=== PATIENT | female | born 1980 | race Caucasian/White ===

== ENCOUNTER 2017-08-29 18:13 | Emergency (ER) | payer MEDICARE, MEDICAID ==
--- NOTE | 2017-08-29 18:49 | RAD ---
3 VIEWS LEFT SHOULDER: Date: 08/29/17 INDICATION: Fall with left shoulder pain. IMPRESSION: No acute fracture or subluxation is evident. Visualized left lung is clear. POS: [facility]
== END 2017-08-29 19:20 | disposition home or self-care (01) ==
LOC: ERS 18:13
DX: S46.912A Strain of unspecified muscle, fascia and tendon at shoulder and upper arm level, left arm, initial encounter (principal); F41.9 Anxiety disorder, unspecified; W01.0XXA Fall on same level from slipping, tripping and stumbling without subsequent striking against object, initial encounter

== ENCOUNTER 2018-04-04 20:40 | Inpatient (IN) | payer MEDICARE, MEDICAID ==
[2018-04-04] MEDS ORDERED: Pantoprazole 40 MG VIAL ONE (22:09)
[2018-04-04] MEDS ORDERED: Ketorolac Tromethamine 30 MG/ML VIAL ONE (22:09)
[2018-04-04] MEDS ORDERED: Ondansetron PF 4 MG/2 ML Vial ONE (22:09)
[2018-04-04 22:19] LABS: #Lymphocytes 1.4 thou/uL (1.20-3.40); #Monocytes 0.5 thou/uL (0.11-0.59); #Neutrophils 9.1 thou/uL (1.40-6.50); %Basophils 0.1 % (0.0-1.0); %Eosinophils 0.2 % (0.0-10.0); %Lymphocytes 12.9 % (21.0-51.0); %Monocytes 4.2 % (0.0-10.0); %Neutrophils 82.6 % (42.0-75.0); Hemoglobin 15.4 g/dL (12.0-16.0); Mean Corpuscular HGB CONC 34.5 g/dL (32.0-36.0); Mean Corpuscular Hemoglobin 31.1 pg (27.0-31.0); Mean Corpuscular Volume 90.4 fL (78.0-98.0); Mean Platelet Volume 7.5 fL (7.4-10.4); Platelet Count 228 thou/uL (130-400); RBC Distribution Width 11.6 % (11.5-14.5); Red Blood Cell (RBC) Count 4.95 mill/uL (4.20-5.40); White Blood Cell (WBC) Count 11.1 thou/uL (4.8-10.8)
[2018-04-04 22:42] LABS: ALT (SGPT) 74 U/L (8-55); AST (SGOT) 118 U/L (5-34); Albumin 3.6 g/dL (3.5-5.0); Alkaline Phosphatase 51 U/L (40-150); Anion Gap 16 mmol/L (10-20); BUN (Urea Nitrogen) 15 mg/dL (7.0-18.7); Bilirubin, Total 0.7 mg/dL (0.2-1.2); Calc. Creatinine Clearance 0 mL/min (70-130); Carbon Dioxide 19 mmol/L (22-29); Chloride 98 mmol/L (98-107); Estimated GFR-MDRD Greater than 90; Globulin 3.5 g/dL (2.4-3.5); Glucose 191 mg/dL (70-105); Lipase 7 U/L (8-78); Potassium 3.4 mmol/L (3.5-5.1); Protein, Total 7.1 g/dL (6.0-8.3); Sodium 130 mmol/L (136-145)
--- NOTE | 2018-04-04 23:02 | CT ---
CT ABDOMEN AND PELVIS WITHOUT CONTRAST: 04/04/2018 PROVIDED CLINICAL HISTORY: Right-sided abdominal/flank pain. FINDINGS: There is dense consolidation with air bronchograms within the right lower lobe, compatible with pneum onia. Small amount of right pleural fluid. The solid abdominal organs are suboptimally evaluated in the absence of IV contrast material, but dem onstrate an unremarkable, unenhanced CT appearance. There is no evidence for urinary tract calculi o r hydronephrosis. There is no bowel dilatation, inflammatory fat stranding, free fluid, or free air apparent. The osseous structures demonstrate no concerning osteoblastic or osteolytic lesions. IMPRESSION: Right lower lobe pneumonia. POS: [facility]
[2018-04-04] MEDS ORDERED: Ondansetron ODT 4 MG TAB PO PRN (23:25)
[2018-04-04] MEDS ORDERED: Bisacodyl 5 MG TAB PO PRN (23:25)
[2018-04-04] MEDS ORDERED: Senokot S 8.6-50 MG TAB PO PRN (23:25)
[2018-04-04] MEDS ORDERED: Sodium Chloride 0.9% 1,000 ML IV SCH (23:30)
[2018-04-04] MEDS ORDERED: Acetaminophen 500 MG TAB ONE (23:36)
[2018-04-04] MEDS ORDERED: cefTRIAXone\\ROCEPHIN 2 GM VIAL ONE (23:36)
--- NOTE | 2018-04-04 23:41 | ULT ---
RIGHT UPPER QUADRANT ULTRASOUND: 04/04/2018 PROVIDED CLINICAL HISTORY: Right flank pain. FINDINGS: The visualized portions of the pancreas appear normal. The gallbladder is not visualized, compatible with the provided clinical history of prior cholecystectomy. There is no evidence for intrahepatic or extrahepatic biliary ductal dilatation. The common duct measures about 5 mm. The liver demonstra david no mass. The right kidney demonstrates no hydronephrosis or mass. Right pleural effusion is par tially visualized. IMPRESSION: Small right pleural effusion is partially visualized. POS: [facility]
[2018-04-04] MEDS ORDERED: Piperacillin/Tazobactam 3.375 GM in Sodium Chloride 0.9% 100 ML IVPB SCH (23:59)
[2018-04-05] MEDS ORDERED: Azithromycin 500 MG VIAL ONE (00:25)
[2018-04-05] MEDS ORDERED: Piperacillin/Tazobactam 3.375 GM in Sodium Chloride 0.9% 100 ML IVPB SCH (03:00)
[2018-04-05 03:53] LABS: #Lymphocytes 1.1 thou/uL (1.20-3.40); #Monocytes 0.4 thou/uL (0.11-0.59); #Neutrophils 5.9 thou/uL (1.40-6.50); %Basophils 0.4 % (0.0-1.0); %Eosinophils 0.2 % (0.0-10.0); %Lymphocytes 14.7 % (21.0-51.0); %Monocytes 5.4 % (0.0-10.0); %Neutrophils 79.3 % (42.0-75.0); Hemoglobin 12.2 g/dL (12.0-16.0); Mean Corpuscular HGB CONC 34.1 g/dL (32.0-36.0); Mean Corpuscular Hemoglobin 30.6 pg (27.0-31.0); Mean Corpuscular Volume 89.5 fL (78.0-98.0); Mean Platelet Volume 7.4 fL (7.4-10.4); Platelet Count 188 thou/uL (130-400); RBC Distribution Width 11.5 % (11.5-14.5); White Blood Cell (WBC) Count 7.4 thou/uL (4.8-10.8)
[2018-04-05 04:05] LABS: ALT (SGPT) 71 U/L (8-55); AST (SGOT) 130 U/L (5-34); Albumin 2.7 g/dL (3.5-5.0); Alkaline Phosphatase 40 U/L (40-150); Anion Gap 15 mmol/L (10-20); BUN (Urea Nitrogen) 10 mg/dL (7.0-18.7); Bilirubin, Total 0.4 mg/dL (0.2-1.2); Calc. Creatinine Clearance 0 mL/min (70-130); Calcium 7.4 mg/dL (7.8-10.44); Carbon Dioxide 18 mmol/L (22-29); Chloride 108 mmol/L (98-107); Estimated GFR-MDRD Greater than 90; Globulin 2.6 g/dL (2.4-3.5); Glucose 137 mg/dL (70-105); Potassium 3.1 mmol/L (3.5-5.1); Protein, Total 5.3 g/dL (6.0-8.3); Sodium 138 mmol/L (136-145)
[2018-04-05] MEDS ORDERED: Calcium Carbonate 500 MG ChewTAB PO PRN (07:07)
[2018-04-05] MEDS ORDERED: Loperamide HCl 2 MG CAP PO PRN (07:07)
[2018-04-05] MEDS ORDERED: cefTRIAXone\\ROCEPHIN 1 GM in Sodium Chloride 0.9% 100 ML IVPB SCH ×2 (07:15→23:00)
[2018-04-05] MEDS ORDERED: Famotidine 20 MG TAB ONE (09:04)
[2018-04-05] MEDS ORDERED: Enoxaparin Sodium 40 MG/0.4 ML SYRINGE ONE (09:05)
[2018-04-05] MEDS: Enoxaparin Sodium 40 MG/0.4 ML SYRINGE SC SCH (09:33)
[2018-04-05] MEDS: guaiFENesin ER 600 MG TAB PO SCH ×2 (09:34→19:46)
[2018-04-05] MEDS: Famotidine 20 MG TAB PO SCH ×2 (09:34→19:46)
--- NOTE | 2018-04-05 11:05 | HP ---
PRIMARY CARE PHYSICIAN: [facility] Call admission. REASON FOR ADMISSION: Right lower lobe community-acquired pneumonia. HISTORY OF PRESENT ILLNESS: A 37-year-old female, who has underlying history of anxiety and depression as well as morbid obesity, who presented to emergency room with a complaint of right-sided upper quadrant pain, which started about 1 week ago associated with some dry cough and mild shortness of breath. She was having subjective fever at home. She denies any hemoptysis. She denies any pleurisy. She denies any recent travel or sick exposure. She is up to date in her flu vaccination decision. Her pain was so intense and she was feeling weak and tired and that is why the patient's mother brought her to emergency room for evaluation. The patient by herself is not good historian, but I spoke with the patient's mother on [phone] and history obtained from her. She denies any UTI symptoms. She denies any hematuria. She denies any constipation, diarrhea, melena, or hematochezia. She denies any abdominal pain. REVIEW OF SYSTEMS: CONSTITUTIONAL: Negative for weight loss or gain, ability to conduct usual activities. SKIN: Negative for rash, itching. EYES: Negative for double vision, pain. ENT/MOUTH: Negative for nose bleeding, neck stiffness, pain, tenderness. CARDIOVASCULAR: Negative for palpitations, dyspnea on exertion, orthopnea. RESPIRATORY: Negative for shortness of breath, wheezing, cough, hemoptysis, fever or night sweats. GASTROINTESTINAL: Negative for poor appetite, abdominal pain, heartburn, nausea , vomiting, constipation, or diarrhea. GENITOURINARY: Negative for urgency, frequency, dysuria, nocturia. MUSCULOSKELETAL: Negative for pain, swelling. NEUROLOGIC/PSYCHIATRIC: Negative for anxiety, depression. ALLERGY/IMMUNOLOGIC: Negative for skin rash, bleeding tendency. All review of systems reviewed with the patient and not reliable because of the patient's little bit cognitive deficit. PAST MEDICAL HISTORY: History of nephrolithiasis. PAST SURGICAL HISTORY: Cholecystectomy, lithotripsy, and left elbow surgery. PAST PSYCHIATRIC HISTORY: Anxiety and depression. SOCIAL HISTORY: The patient denies any tobacco, alcohol, or illicit drug abuse. She lives at home with her foster mother. FAMILY HISTORY: No family history of coronary artery disease, stroke, or cancer. ALLERGIES: NO KNOWN DRUG ALLERGIES. CURRENT HOME MEDICATIONS: 1. Prozac 10 mg daily. 2. Ketoconazole shampoo twice per week. 3. Flonase nasal spray daily. 4. Claritin 10 mg daily. EMERGENCY ROOM COURSE: The patient is given Zosyn, azithromycin, Rocephin, Protonix, Toradol, Zofran, and IV fluid. PHYSICAL EXAMINATION: VITAL SIGNS: On arrival; blood pressure 131/97, pulse 115, respiratory rate 18, temperature 97.5, saturation 99% on room air. Weight 72.6 kg. GENERAL: The patient is currently alert, awake, follows commands. No obvious acute distress. HEENT: Head; normocephalic and atraumatic. Eyes; pupils round and reactive to light. Extraocular muscle intake. ENT; oropharynx within normal limits. Moist mucous membranes. No oral lesion. No pharyngeal erythema. No exudate. NECK: Supple. Short neck. Difficult to assess JVD. No thyromegaly. No carotid bruits. LUNGS: Right lower lobe rales noted. No wheeze. No rhonchi. CARDIAC: S1 and S2, regular, tachycardia. No murmur. No gallop. No rub. ABDOMEN: Soft. Obesity present. Bowel sounds present. Nontender. Nondistended. No organomegaly. No mass. No suprapubic tenderness. BACK: Unremarkable. No CVA tenderness. EXTREMITIES: Upper extremities; passive movement of all joints is normal. Lower extremities; no edema. Good distal pulsation. SKIN: No skin rash. Overall, the patient appears to be cushingoid type of clinical picture on her appearance. NEUROLOGIC: Nonfocal examination. SIGNIFICANT LABORATORY DATA: CBC; WBC 11.1, hemoglobin 15.4, platelet 228. BMP ; sodium 130, potassium 3.4, chloride 98, carbon dioxide 19, BUN 15, creatinine 0.65, glucose 191, calcium 9.0. LFT; AST 118, ALT 74, alkaline phosphatase 51, albumin 3.6, lipase 7, and lactic acid 1.7. ASSESSMENT AND PLAN: Impression: 1. Sepsis due to right lower lobe community-acquired pneumonia. The patient is kept on broad-spectrum antibiotic therapy with Rocephin and Levaquin. The patient will continue to get IV fluid, and we will monitor her in hospital. 2. Left lower lobe community-acquired pneumonia, likely bacterial suspecting streptococcal. At this point, the patient will be kept empirically on Rocephin 1 g q.24 hours, Levaquin 750 mg IV daily, Mucinex 600 mg twice daily, DuoNeb q.6 hourly p.r.n., and Florastor 250 mg p.o. daily. We will monitor clinical response. 3. Abnormal electrolytes with hyponatremia and hypokalemia. The patient will be given electrolyte replacement while in hospital with IV fluid. We will continue the NS with KCl at 100 mL/hour, and we will repeat labs tomorrow. 4. Abnormal LFT. Right upper quadrant ultrasound is unremarkable. We will check hepatitis profile tomorrow, and we will repeat LFT tomorrow. The patient does not have any right upper quadrant tenderness at this point. 5. Anxiety and depression. We will continue Prozac 10 mg p.o. daily. 6. Allergic rhinitis. We will continue Flonase nasal spray daily. 7. Obesity. Dietary education given. Weight loss education given. Healthy lifestyle measure discussed with the patient. 8. Deep venous thrombosis prophylaxis, Lovenox 40 mg subcu daily. 9. Gastrointestinal prophylaxis, Pepcid 20 mg p.o. b.i.d. CODE STATUS: The patient is full code. The patient's mother is surrogate decision maker. DISPOSITION PLAN: Based on clinical course, we are expecting the patient's stay in hospital more than 2 midnights. Plan of care discussed with the patient and her mother at bedside. Job ID: [id number] MTDD
[2018-04-05] MEDS: NS 0.9% w/ 20 MEQ KCL 1,000 ML/1,000 ML BAG IV SCH ×2 (12:46→19:46)
[2018-04-05] MEDS: Acetaminophen 325 MG TAB PO PRN (12:59)
[2018-04-05] MEDS: HYDROcodone/Acetaminophen 5/325 mg Tablet PO PRN (17:48)
[2018-04-05] MEDS: Ketorolac Tromethamine 30 MG/ML VIAL IVP PRN (19:56)
[2018-04-05 23:00] LABS: Bilirubin Moderate (Negative); Blood, Urine Large (Negative); Clarity CLOUDY (Clear); Glucose, Urine (Dipstick) Negative (Negative); Leukocyte Negative (Negative); Nitrite Negative (Negative); Protein, Urine (Dipstick) 30 mg/dL (Neg-Trace); Specific Gravity, Urine 1.025 (1.002-1.036); pH, Urine 6.5 (5.0-9.0)
[2018-04-05 23:02] LABS: Bacteria/HPF None Seen HPF (None Seen)
[2018-04-05 23:05] LABS: Pathc Cast-AUWi Flag 3.48 (0-2.49)
[2018-04-05 23:12] LABS: RBC/HPF 21-50 HPF (0-3)
[2018-04-05 23:15] LABS: Hyaline Casts/LPF 0-3 HYALINE CAST LPF (0-3 Hyaline)
[2018-04-05] MEDS ORDERED: cefTRIAXone\\ROCEPHIN 1 GM VIAL ONE (23:55)
[2018-04-06] MEDS ORDERED: Chloraseptic Spray 180 ml Bottle PO PRN (00:06)
[2018-04-06] MEDS: HYDROcodone/Acetaminophen 5/325 mg Tablet PO PRN ×2 (00:20→07:51)
[2018-04-06] MEDS: Cepastat Lozenges 1 LOZ PO PRN (00:47)
[2018-04-06] MEDS: Ketorolac Tromethamine 30 MG/ML VIAL IVP PRN (04:09)
[2018-04-06] MEDS ORDERED: ALPRAZolam 0.25 MG TAB PO SCH (04:15)
[2018-04-06 06:41] LABS: Hemoglobin 13.3 g/dL (12.0-16.0); Mean Corpuscular HGB CONC 33.9 g/dL (32.0-36.0); Mean Corpuscular Hemoglobin 31.4 pg (27.0-31.0); Mean Corpuscular Volume 92.4 fL (78.0-98.0); Mean Platelet Volume 7.8 fL (7.4-10.4); Platelet Count 197 thou/uL (130-400); Red Blood Cell (RBC) Count 4.25 mill/uL (4.20-5.40); White Blood Cell (WBC) Count 14.7 thou/uL (4.8-10.8)
[2018-04-06 06:48] LABS: ALT (SGPT) 62 U/L (8-55); AST (SGOT) 66 U/L (5-34); Albumin 2.8 g/dL (3.5-5.0); Alkaline Phosphatase 51 U/L (40-150); Anion Gap 19 mmol/L (10-20); BUN (Urea Nitrogen) 7 mg/dL (7.0-18.7); Bilirubin, Total 0.4 mg/dL (0.2-1.2); Calc. Creatinine Clearance 182 mL/min (70-130); Calcium 7.5 mg/dL (7.8-10.44); Carbon Dioxide 12 mmol/L (22-29); Chloride 104 mmol/L (98-107); Estimated GFR-MDRD Greater than 90; Globulin 2.9 g/dL (2.4-3.5); Glucose 100 mg/dL (70-105); Potassium 3.4 mmol/L (3.5-5.1); Protein, Total 5.7 g/dL (6.0-8.3); Sodium 132 mmol/L (136-145)
[2018-04-06 07:07] LABS: HBCM Index 0.04 S/CO (0-0.79); HBSAg Index 0.21 S/CO (0-0.99); Hep A IgM AB Non-Reactive (NonReactive); Hep A IgM S/CO 0.14 S/CO (0-0.79); Hep B Surf Ag Non-Reactive S/CO (NonReactive); Hep C IgG Ab Non-Reactive (NonReactive); Hep C Index 0.02 S/CO (0-0.79); Hepatitis B Core IgM Abs Non-Reactive (NonReactive)
[2018-04-06 07:44] LABS: Band 39 % (5-11); Lymphocytes 11 % (21-51); MDiff Complete? YES; Monocytes 4 % (0-10); Neutrophil 46 % (42-75); PLT Morphology Comment Appears Adequate; Toxic Granulation SLIGHT
[2018-04-06] MEDS: Famotidine 20 MG TAB PO SCH (07:51)
[2018-04-06] MEDS: guaiFENesin ER 600 MG TAB PO SCH (07:51)
[2018-04-06] MEDS: Enoxaparin Sodium 40 MG/0.4 ML SYRINGE SC SCH (07:52)
[2018-04-06] MEDS ORDERED: VANCOMYCIN IVPB PRN (08:17)
[2018-04-06] MEDS: Fluticasone Propionate Nasal Spray 16 gm Bottle NASAL SCH (08:37)
--- NOTE | 2018-04-06 09:44 | RAD ---
CHEST ONE VIEW: HISTORY: Pneumonia. COMPARISON: 01/01/2008 FINDINGS: (DICTATION INCOMPLETE) POS: [facility]
--- NOTE | 2018-04-06 09:51 | PDOC.PN ---
- Subjective Encounter Start Date: 04/06/18 Encounter Start Time: 08:40 -: old records requested/rev pt has right side pleuritic chest pain, has dyspnea, no fever, - Objective Resuscitation Status - Order Detail: 04/04/18 23:25 Resuscitation Status Routine Resuscitation Status: FULL: Full Resuscitation MAR Reviewed: Yes Vital Signs & Weight: Vital Signs (12 hours) Temp Pulse Resp BP Pulse Ox 04/06/18 07:12 97.9 F 110 H 18 115/79 95 04/06/18 04:00 98.5 F 118 H 18 114/82 95 04/06/18 03:11 117 H 24 H 9 L 04/06/18 00:00 97.7 F 111 H 18 135/82 93 L Weight Weight 180 lb I&O: 04/05/18 04/06/18 04/07/18 06:59 06:59 06:59 Intake Total 2860 Balance 2860 Result Diagrams: 04/06/18 06:01 04/06/18 06:01 Radiology Reviewed by me: Yes (chest xray reviewed) Phys Exam - Physical Examination Constitutional: NAD HEENT: PERRLA, moist MMs, sclera anicteric Neck: no JVD, supple Respiratory: no wheezing, no rhonchi right side rales+ Cardiovascular: RRR, no significant murmur, no rub tachycardia Gastrointestinal: soft, non-tender, no distention, positive bowel sounds obesity+ Musculoskeletal: no edema, pulses present Neurological: non-focal, normal sensation, moves all 4 limbs Lymphatic: no nodes Psychiatric: normal affect Skin: no rash, normal turgor Dx/Plan (1) Right lower lobe pneumonia Code(s): J18.1 - LOBAR PNEUMONIA, UNSPECIFIED ORGANISM Status: Acute Comment : supecting from streptoccocal pneumonie (2) Sepsis due to pneumonia Code(s): J18.9 - PNEUMONIA, UNSPECIFIED ORGANISM; A41.9 - SEPSIS, UNSPECIFIED ORGANISM Status: Acute (3) Abnormal LFTs Code(s): R94.5 - ABNORMAL RESULTS OF LIVER FUNCTION STUDIES Status: Acute Comment: due to sepsis (4) Hypokalemia Code(s): E87.6 - HYPOKALEMIA Status: Acute (5) Hyponatremia Code(s): E87.1 - HYPO-OSMOLALITY AND HYPONATREMIA Status: Acute (6) Obesity (BMI 30.0-34.9) Code(s): E66.9 - OBESITY, UNSPECIFIED Status: Chronic - Plan cont current plan of care, continue antibiotics, respiratory therapy, incentive spirometry, DVT proph w/lovenox * chest xray done and reviewed * will add solumderol 40 mg iv q 6 hourly for 4 dose * continue toradol for pleuritic pain * will add vancomycin to cover GPC * continue rocephin and levaquin * will monitor * continue IVF * incentive spirometry as tolerated * repeat labs tomorrow * check urine streptococcal and legionella antigen test, also check viral panel test Review of Systems - Review of Systems Constitutional: fever, weakness. negative: chills, sweats, malaise, other Respiratory: Cough, Shortness of Breath, SOB with Excertion, Pleuritic Pain. negative: Dry, Hemoptysis, Sputum, Wheezing Cardiovascular: negative: chest pain, palpitations, orthopnea, paroxysmal nocturnal dyspnea, edema, light headedness, other Gastrointestinal: negative: Nausea, Vomiting, Abdominal Pain, Diarrhea, Constipation, Melena, Hematochezia, Other Genitourinary: negative: Dysuria, Frequency, Incontinence, Hematuria, Retention , Other Musculoskeletal: negative: Neck Pain, Shoulder Pain, Arm Pain, Back Pain, Hand Pain, Leg Pain, Foot Pain, Other Skin: negative: Rash, Lesions, Nelson, Bruising, Other - Medications/Allergies Allergies/Adverse Reactions: Allergies Allergy/AdvReac Type Severity Reaction Status Date / Time Sulfa (Sulfonamide Allergy Verified 04/05/18 13:05 Antibiotics) Medications: Current Medications Acetaminophen (Tylenol) 650 mg PO Q4H PRN PRN Reason: Headache/Fever/Mild Pain (1-3) Last Admin: 04/05/18 12:59 Dose: 650 mg Hydrocodone Bitart/Acetaminophen ([place] 5/325) 1 tab PO Q4H PRN PRN Reason: Moderate Pain (4-6) Last Admin: 04/06/18 07:51 Dose: 1 tab Albuterol/Ipratropium (Duoneb) 3 ml NEB [id number] PRN PRN Reason: SOB &/or Wheezing Last Admin: 04/06/18 03:11 Dose: 3 ml Bisacodyl (Dulcolax) 10 mg PO DAILYPRN PRN PRN Reason: Constipation Calcium Carbonate (Tums) 1,000 mg PO Q4H PRN PRN Reason: Heartburn or Indigestion Enoxaparin Sodium (Lovenox) 40 mg SC 0900 [facility] Last Admin: 04/06/18 07:52 Dose: 40 mg Famotidine (Pepcid) 20 mg PO BID [facility] Last Admin: 04/06/18 07:51 Dose: 20 mg Fluticasone Propionate (Flonase Nasal [place]) 0 gm NASAL DAILY [facility] Last Admin: 04/06/18 08:37 Dose: Not Given Guaifenesin (Mucinex) 600 mg PO Q12HR [facility] Last Admin: 04/06/18 07:51 Dose: 600 mg Levofloxacin 750 mg/ Device 150 mls @ 100 mls/hr IVPB Q24HR [facility] Last Admin: 04/06/18 07:52 Dose: 150 mls Ceftriaxone Sodium 1 gm/ (Sodium Chloride) 100 mls @ 200 mls/hr IVPB Q24HR [facility] Last Admin: 04/05/18 23:56 Dose: 100 mls Potassium Chloride/Sodium Chloride (Ns 0.9% W/ 20 Meq Kcl) 1,000 ml in 1,000 mls @ 100 mls/hr IV .Q10H [facility] Last Admin: 04/05/18 19:46 Dose: 1,000 mls Ketorolac Tromethamine (Toradol) 15 mg IVP Q6H PRN PRN Reason: Pain Stop: 04/10/18 19:48 Last Admin: 04/06/18 04:09 Dose: 15 mg Loperamide HCl (Imodium) 2 mg PO PRN PRN PRN Reason: Diarrhea/Loose Stools Methylprednisolone Sodium Succinate (Solu-Medrol) 40 mg IVP Q6HR [facility] Methylprednisolone Sodium Succinate (Solu-Medrol) 40 mg IVP NOW [facility] Stop: 04/06/18 11:00 Miscellaneous Medication (Pharmacy To Dose) 1 each IVPB DAILYPRN PRN PRN Reason: LABS Ondansetron HCl (Zofran Odt) 4 mg PO Q6H PRN PRN Reason: Nausea/Vomiting Ondansetron HCl (Zofran) 4 mg IVP Q6H PRN PRN Reason: Nausea/Vomiting Phenol (Chloraseptic [place] 180 Ml Bot) 0 ml PO PRN PRN PRN Reason: SORE THROAT Last Admin: 04/06/18 00:47 Dose: 2 spr Senna/Docusate Sodium (Senokot S) 2 tab PO BIDPRN PRN PRN Reason: Constipation Sodium Chloride (Flush - Normal Saline) 10 ml IVF Q12HR PRN PRN Reason: Saline Flush Sodium Chloride (Flush - Normal Saline) 10 ml IVF PRN PRN PRN Reason: Saline Flush Throat Lozenges (Cepastat Lozenges) 1 jef PO PRN PRN PRN Reason: SORE THROAT Last Admin: 04/06/18 00:47 Dose: 1 jef Zolpidem Tartrate (Ambien) 5 mg PO HSPRN PRN PRN Reason: Insomnia
[2018-04-06] MEDS: NS 0.9% w/ 20 MEQ KCL 1,000 ML/1,000 ML BAG IV SCH (10:18)
[2018-04-06] MEDS ORDERED: Furosemide 40 MG/4 ML VIAL ONE (11:27)
[2018-04-06 11:58] LABS: Actual Bicarbonate (HCO3a) 15.9 mEq/L (22-28); Base Excess (BEa) -9.7 mEq/L (-2.0 to +3.0); CO2 Tension 34.3 mmHg (35.0-45.0); Carboxyhemoglobin (COHb) 1.2 gm% (0.0-3.0); O2 Tension (PaO2) 68.2 mmHg (80.0-100.0); Potassium - ABG Lab 3.82 mmol/L (3.70-5.30); pH, Arterial 7.28 (7.35-7.45)
[2018-04-06] MEDS ORDERED: Vancomycin HCl 1.25 GM in Sodium Chloride 0.9% 250 ML 250 ML IVPB SCH (12:00)
[2018-04-06] MEDS ORDERED: Furosemide 40 MG/4 ML VIAL SLOW IVP SCH (12:00)
[2018-04-06 12:09] LABS: ALV-art Gradient 38.655 (0-20); Puncture Site RRA
[2018-04-06] MEDS ORDERED: Potassium Chloride 20 MEQ TAB PO SCH (14:00)
[2018-04-06 14:29] LABS: Lactic Acid 1.3 mmol/L (0.5-2.2)
[2018-04-06 14:38] LABS: Troponin I Less than 0.010 ng/mL (< 0.028)
[2018-04-06 14:58] LABS: Strep pneumo Urine Ag NEGATIVE (NEGATIVE)
[2018-04-06 14:59] LABS: Legionella Urinary Ag Negative (Negative)
--- NOTE | 2018-04-06 16:14 | CON ---
DATE OF CONSULTATION: 04/06/2018 SERVICE: Pulmonary Medicine. REASON FOR CONSULTATION: Respiratory failure. HISTORY OF PRESENT ILLNESS: The patient is a 37-year-old white female with past medical history significant for obesity, who was in her usual state of health until a week prior to admission. She started having increasing shortness of breath, cough, and low-grade fevers that became a little bit more severe. She is bringing up yellow phlegm. She presented to the emergency department and was given several boluses of fluid. She was tucked into the hospital overnight on IV fluids, and was getting broad-spectrum antibiotics. Ultimately, she developed increasing respiratory failure overnight. She had increasing tachycardia and increasing shortness of breath. This morning, she was given a dose of diuretic. She is yet to open up. That being said, she is visibly dyspneic, and has very high work of breathing. An ABG was obtained demonstrating that she was failing to compensate for metabolic acidosis. She also had a touch of hypoxemia. PAST MEDICAL HISTORY: History of nephrolithiasis. PAST SURGICAL HISTORY: 1. Cholecystectomy. 2. Lithotripsy. 3. Left elbow surgery. SOCIAL HISTORY: Negative for alcohol, tobacco, or illicit drug use. She lives at home with her foster mother. Apparently, she is going to be getting on Wednesday. She has no exposure to chemicals, dust, asbestos, or tuberculosis. ALLERGIES: NO KNOWN DRUG ALLERGIES. MEDICATIONS: List of her inpatient medications was reviewed. Multiple updates were made. FAMILY HISTORY: Noncontributory. REVIEW OF SYSTEMS: General, head, ears, eyes, nose, throat, cardiovascular, respiratory, GI, , musculoskeletal, neurologic, and skin are negative except as mentioned in the HPI. PHYSICAL EXAMINATION: VITAL SIGNS: Afebrile currently. On presentation, she had a temperature of 102 , pulse 126 and increasing, blood pressure 124/83, respirations 48, and saturation 98% on 3.5 L nasal cannula. GENERAL: The patient is awake and alert. She is in moderate respiratory distress. HEENT: Normocephalic and atraumatic. Sclerae white. Conjunctivae pink. Oral mucosa is moist without lesions. LUNGS: Reduced air entry. There is absolutely no prolonged expiratory phase, though I hear minimal wheezing present. Crackles are extensive throughout bilateral lung joseph. HEART: Normal rate, regular. ABDOMEN: Soft, nontender, and nondistended. Bowel sounds are positive. MUSCULOSKELETAL: No cyanosis or clubbing. There is 1+ pitting in the bilateral lower extremities. NEUROLOGIC: Grossly nonfocal. LABORATORY DATA: WBC 14.7, hemoglobin 13.3, and platelets 197,000. Band count is 39% on top of 46% neutrophils. pH 7.28, pCO2 of 34, pO2 of 68, this is on room air. Potassium 3.4. Basic metabolic profile is otherwise unremarkable. AST and ALT are downtrending. Alkaline phosphatase falls within the normal limits. Calcium 7.5. Urinalysis is positive for ketones and hematuria. There is no significant pyuria present. Urine glucose is not present. Anion gap is up trending to 19. Original lactate was 1.7. Blood cultures x2 and urine culture is negative. IMAGING DATA: Chest x-ray demonstrates bibasilar infiltrates/effusions. Cephalization is noted. Heart appears to be enlarged today. ASSESSMENT: 1. Acute hypoxic respiratory failure. 2. Community-acquired pneumonia. 3. Sepsis without end-organ damage. DISCUSSION AND PLAN: My suspicion is the patient got a touch of volume overload. As such, we are going to discontinue her IV fluids, and transition her over to just p.o. fluoroquinolone. She has already gotten a dose of Lasix. We will see whether or not she responds to this. Pulmonary Critical Care will continue to follow along, but we are going to make preparations to move her to the ICU for close observation, and to initiate noninvasive positive airway pressure therapy. If she fails this , intubation will be considered. Hopefully, we can avoid that, diurese her, and get her to her wedding within a couple of days. Critical care time: 30 minutes. Job ID: [id number] MTDD
[2018-04-06] MEDS: Potassium Chloride 20 MEQ in Premix Bag 1 BAG IVPB SCH ×2 (16:41→18:19)
[2018-04-06] MEDS ORDERED: Furosemide 20 MG/2 ML VIAL SLOW IVP SCH (19:00)
[2018-04-07 04:33] LABS: Hemoglobin 12.7 g/dL (12.0-16.0); Mean Corpuscular HGB CONC 34.6 g/dL (32.0-36.0); Mean Corpuscular Hemoglobin 31.4 pg (27.0-31.0); Mean Corpuscular Volume 90.8 fL (78.0-98.0); Platelet Count 251 thou/uL (130-400); RBC Distribution Width 11.9 % (11.5-14.5); Red Blood Cell (RBC) Count 4.06 mill/uL (4.20-5.40); White Blood Cell (WBC) Count 16.9 thou/uL (4.8-10.8)
[2018-04-07 04:45] LABS: ALT (SGPT) 44 U/L (8-55); AST (SGOT) 19 U/L (5-34); Albumin 2.9 g/dL (3.5-5.0); Alkaline Phosphatase 53 U/L (40-150); Anion Gap 17 mmol/L (10-20); BUN (Urea Nitrogen) 13 mg/dL (7.0-18.7); Bilirubin, Total 0.5 mg/dL (0.2-1.2); Calc. Creatinine Clearance 167 mL/min (70-130); Calcium 8.4 mg/dL (7.8-10.44); Carbon Dioxide 18 mmol/L (22-29); Chloride 103 mmol/L (98-107); Estimated GFR-MDRD Greater than 90; Globulin 3.2 g/dL (2.4-3.5); Glucose 230 mg/dL (70-105); Phosphorus 2.5 mg/dL (2.3-4.7); Potassium 3.5 mmol/L (3.5-5.1); Protein, Total 6.1 g/dL (6.0-8.3); Sodium 134 mmol/L (136-145)
[2018-04-07 04:47] LABS: Band 25 % (5-11); Eosinophils 1 % (0-10); Lymphocytes 7 % (21-51); MDiff Complete? YES; Monocytes 3 % (0-10); Neutrophil 64 % (42-75); PLT Morphology Comment Appears Adequate
[2018-04-07] MEDS: Furosemide 40 MG/4 ML VIAL IVP SCH (05:09)
--- NOTE | 2018-04-07 07:23 | RAD ---
CHEST ONE VIEW: HISTORY: Chest pain. Cough. COMPARISON: Radiograph from 2008. FINDINGS: There are layering bilateral effusions. Right basilar air space opacity. No pneumothorax. No acute osseous abnormality. The cardiac silhouette is mildly enlarged. IMPRESSION: Right lower lobe and possibly left lower lobe pneumonia with layering right effusion. POS: [facility]
[2018-04-07] MEDS: Enoxaparin Sodium 40 MG/0.4 ML SYRINGE SC SCH (09:00)
[2018-04-07] MEDS: Fluticasone Propionate Nasal Spray 16 gm Bottle NASAL SCH (11:15)
--- NOTE | 2018-04-07 11:56 | PDOC.PN ---
- Subjective Encounter Start Date: 04/07/18 Encounter Start Time: 10:15 -: old records requested/rev last night she used bipap, she is less tachypneic and less tachycardic, overall she subjectively feels better than yesterday - Objective Resuscitation Status - Order Detail: 04/04/18 23:25 Resuscitation Status Routine Resuscitation Status: FULL: Full Resuscitation MAR Reviewed: Yes Vital Signs & Weight: Vital Signs (12 hours) Temp Pulse Resp Pulse Ox 04/07/18 08:00 99 F 97 04/07/18 07:54 109 H 28 H 98 04/07/18 03:00 98.6 F 04/07/18 02:22 100 23 H 97 Weight Admit Weight 3.012 oz Weight 180 lb Most Recent Monitor Data Heart Rate from ECG 111 NIBP 136/72 NIBP BP-Mean 115 Respiration from ECG 29 SpO2 100 I&O: 04/06/18 04/07/18 04/08/18 06:59 06:59 06:59 Intake Total 2860 558 300 Output Total 1655 515 Balance 2860 -1097 -215 Result Diagrams: 04/07/18 04:06 04/07/18 04:06 EKG Reviewed by me: Yes (sinus tachycardia) Phys Exam - Physical Examination Constitutional: NAD HEENT: PERRLA, moist MMs, sclera anicteric Neck: no JVD, supple bilateral basal rales Cardiovascular: RRR, no significant murmur, no rub tachycardia Gastrointestinal: soft, non-tender, no distention, positive bowel sounds Musculoskeletal: no edema, pulses present Neurological: non-focal, normal sensation Lymphatic: no nodes Psychiatric: normal affect Skin: no rash, normal turgor Dx/Plan (1) Right lower lobe pneumonia Code(s): J18.1 - LOBAR PNEUMONIA, UNSPECIFIED ORGANISM Status: Acute Comment : supecting from streptoccocal pneumonie (2) Sepsis due to pneumonia Code(s): J18.9 - PNEUMONIA, UNSPECIFIED ORGANISM; A41.9 - SEPSIS, UNSPECIFIED ORGANISM Status: Acute (3) Abnormal LFTs Code(s): R94.5 - ABNORMAL RESULTS OF LIVER FUNCTION STUDIES Status: Acute Comment: due to sepsis (4) Hypokalemia Code(s): E87.6 - HYPOKALEMIA Status: Acute (5) Hyponatremia Code(s): E87.1 - HYPO-OSMOLALITY AND HYPONATREMIA Status: Acute (6) Obesity (BMI 30.0-34.9) Code(s): E66.9 - OBESITY, UNSPECIFIED Status: Chronic - Plan cont current plan of care, continue antibiotics, respiratory therapy * continue levaquin * continue prednisone * medication reviewed as below * symptomatic treatment * will monitor * pulmonary following and recommendation appreciated. Review of Systems - Review of Systems Eyes: negative: Pain, Vision Change, Conjunctivae Inflammation, Eyelid Inflammation, Redness, Other ENT: negative: Ear Pain, Ear Discharge, Nose Pain, Nose Discharge, Nose Congestion, Mouth Pain, Mouth Swelling, Throat Pain, Throat Swelling, Other Respiratory: Shortness of Breath, SOB with Excertion. negative: Cough, Dry, Hemoptysis, Pleuritic Pain, Sputum, Wheezing Cardiovascular: negative: chest pain, palpitations, orthopnea, paroxysmal nocturnal dyspnea, edema, light headedness, other Gastrointestinal: negative: Nausea, Vomiting, Abdominal Pain, Diarrhea, Constipation, Melena, Hematochezia, Other Genitourinary: negative: Dysuria, Frequency, Incontinence, Hematuria, Retention , Other Musculoskeletal: negative: Neck Pain, Shoulder Pain, Arm Pain, Back Pain, Hand Pain, Leg Pain, Foot Pain, Other Skin: negative: Rash, Lesions, Nelson, Bruising, Other - Medications/Allergies Allergies/Adverse Reactions: Allergies Allergy/AdvReac Type Severity Reaction Status Date / Time Sulfa (Sulfonamide Allergy Verified 04/05/18 13:05 Antibiotics) Medications: Current Medications Acetaminophen (Tylenol) 650 mg PO Q4H PRN PRN Reason: Headache/Fever/Mild Pain (1-3) Last Admin: 04/05/18 12:59 Dose: 650 mg Hydrocodone Bitart/Acetaminophen ([place] 5/325) 1 tab PO Q4H PRN PRN Reason: Moderate Pain (4-6) Last Admin: 04/06/18 07:51 Dose: 1 tab Albuterol/Ipratropium (Duoneb) 3 ml NEB [id number] PRN PRN Reason: SOB &/or Wheezing Last Admin: 04/06/18 03:11 Dose: 3 ml Bisacodyl (Dulcolax) 10 mg PO DAILYPRN PRN PRN Reason: Constipation Calcium Carbonate (Tums) 1,000 mg PO Q4H PRN PRN Reason: Heartburn or Indigestion Enoxaparin Sodium (Lovenox) 40 mg SC 0900 [facility] Last Admin: 04/07/18 09:00 Dose: 40 mg Fluticasone Propionate (Flonase Nasal [place]) 0 gm NASAL DAILY [facility] Last Admin: 04/07/18 11:15 Dose: 2 spr Furosemide (Lasix) 20 mg IVP 0600 [facility] Last Admin: 04/07/18 05:09 Dose: 20 mg Levofloxacin (Levaquin) 750 mg PO 0600 [facility] Stop: 04/11/18 06:01 Last Admin: 04/07/18 05:09 Dose: 750 mg Loperamide HCl (Imodium) 2 mg PO PRN PRN PRN Reason: Diarrhea/Loose Stools Ondansetron HCl (Zofran Odt) 4 mg PO Q6H PRN PRN Reason: Nausea/Vomiting Ondansetron HCl (Zofran) 4 mg IVP Q6H PRN PRN Reason: Nausea/Vomiting Phenol (Chloraseptic [place] 180 Ml Bot) 0 ml PO PRN PRN PRN Reason: SORE THROAT Last Admin: 04/06/18 00:47 Dose: 2 spr Senna/Docusate Sodium (Senokot S) 2 tab PO BIDPRN PRN PRN Reason: Constipation Sodium Chloride (Flush - Normal Saline) 10 ml IVF Q12HR PRN PRN Reason: Saline Flush Sodium Chloride (Flush - Normal Saline) 10 ml IVF PRN PRN PRN Reason: Saline Flush Throat Lozenges (Cepastat Lozenges) 1 jef PO PRN PRN PRN Reason: SORE THROAT Last Admin: 04/06/18 00:47 Dose: 1 jef Zolpidem Tartrate (Ambien) 5 mg PO HSPRN PRN PRN Reason: Insomnia
[2018-04-07] MEDS ORDERED: Furosemide 20 MG/2 ML VIAL SLOW IVP SCH (14:15)
[2018-04-07] MEDS ORDERED: Magnesium 2 GM/50 ML 2 GM in Premix Bag 1 BAG IVPB SCH (14:15)
--- NOTE | 2018-04-07 14:54 | PRG ---
DATE OF SERVICE: 04/07/2018 SERVICE: Pulmonary Medicine. INTERVAL HISTORY: The patient looks much more comfortable today. She denies any current chest pain, fevers, or chills. She is talking today. She is not having one and two word dyspnea like she did yesterday. She remains tachypneic. That being said, there were no significant overnight events. She is tolerating BiPAP break just fine. PHYSICAL EXAMINATION: VITAL SIGNS: Afebrile, pulse 110, blood pressure 129/69, respirations 28, and saturation 100% on 2 L nasal cannula. HEENT: Normocephalic and atraumatic. Sclerae white. Conjunctivae pink. Oral mucosa is moist without lesions. LUNGS: Excellent air entry. There is no prolonged expiratory phase. Dependent crackles are present in bibasilar regions. HEART: Normal rate and regular. ABDOMEN: Soft, nontender, and nondistended. Bowel sounds are positive. MUSCULOSKELETAL: No cyanosis or clubbing. There is trace pitting in the bilateral lower extremities. NEUROLOGIC: Grossly nonfocal. LABORATORY DATA: WBC 16.9, hemoglobin 12.7, platelets 251,000. Band count is dropping to 25% on top of 64% neutrophils. pH 7.28, pCO2 of 34, pO2 of 68 yesterday. Basic metabolic profile is unremarkable. Her bicarb is improved to 18, anion gap is downtrending. Potassium 3.5 and magnesium 1.6. Phosphorus falls within the normal limits. Lactate is negative. Liver function studies continue to improve. Strep and Legionella urine antigens are unremarkable. Urine culture, blood culture x2 are negative. Respiratory virus panel did not detect any pathogens. ASSESSMENT: 1. Acute hypoxic respiratory failure, improving. 2. Community-acquired pneumonia. 3. Sepsis without end-organ damage. DISCUSSION AND PLAN: We will replace the potassium and magnesium. I will continue to make efforts, diuresing Ms. Rosas through time. We will provide her with an additional afternoon dose of Lasix. We will continue antibiotics, but they can be discontinued after a total duration of 7 days. Pulmonary/Critical Care will continue to follow along, but from my perspective, she is stable for transition out of the ICU to the intermediate care unit. Hopefully, she will be ready for discharge in 24 to 48 hours, but I do not think we are going to be able to get the patient to her wedding. Job ID: [id number]
[2018-04-07] MEDS: HYDROcodone/Acetaminophen 5/325 mg Tablet PO PRN (20:15)
[2018-04-07] MEDS: Zolpidem Tartrate 5 MG TAB PO PRN (21:22)
[2018-04-08] MEDS: HYDROcodone/Acetaminophen 5/325 mg Tablet PO PRN (04:50)
[2018-04-08 05:37] LABS: Anion Gap 14 mmol/L (10-20); BUN (Urea Nitrogen) 17 mg/dL (7.0-18.7); Calc. Creatinine Clearance 182 mL/min (70-130); Calcium 8.6 mg/dL (7.8-10.44); Carbon Dioxide 23 mmol/L (22-29); Chloride 101 mmol/L (98-107); Estimated GFR-MDRD Greater than 90; Glucose 138 mg/dL (70-105); Potassium 3.2 mmol/L (3.5-5.1); Sodium 135 mmol/L (136-145)
[2018-04-08] MEDS: Furosemide 40 MG/4 ML VIAL IVP SCH (05:50)
[2018-04-08 06:02] LABS: Band 11 % (5-11); Hemoglobin 12.9 g/dL (12.0-16.0); Lymphocytes 16 % (21-51); MDiff Complete? YES; Mean Corpuscular HGB CONC 33.7 g/dL (32.0-36.0); Mean Corpuscular Hemoglobin 30.5 pg (27.0-31.0); Mean Corpuscular Volume 90.4 fL (78.0-98.0); Mean Platelet Volume 6.8 fL (7.4-10.4); Monocytes 4 % (0-10); Neutrophil 68 % (42-75); Platelet Count 334 thou/uL (130-400); RBC Distribution Width 11.9 % (11.5-14.5); Reactive Lymphocytes 1 % (0-10); Red Blood Cell (RBC) Count 4.23 mill/uL (4.20-5.40); White Blood Cell (WBC) Count 15.7 thou/uL (4.8-10.8)
--- NOTE | 2018-04-08 09:47 | RAD ---
CHEST TWO VIEWS: HISTORY: Effusion. COMPARISON: Radiograph from 04/06/2018. FINDINGS: There is a moderate sized layering right pleural effusion, increased in size from the comparison exam ination. No significant left-sided fusion. The cardiac silhouette and mediastinal contours are with in normal limits. No acute osseous abnormality. IMPRESSION: Slight interval size increase of right layering pleural effusion. POS: [facility]
[2018-04-08] MEDS ORDERED: Lidocaine 1% (PF) 30 ML VIAL ONE (10:09)
--- NOTE | 2018-04-08 10:39 | PRG ---
DATE OF SERVICE: 04/08/2018 SERVICE: Pulmonary Medicine. INTERVAL HISTORY: The patient is doing really well from respiratory standpoint. The patient has been weaned down to room air. She denies any chest pain, nausea , vomiting, fevers, or chills. Her inflammatory markers seem to be improving. She had an uneventful evening. PHYSICAL EXAMINATION: VITAL SIGNS: Afebrile, pulse 104, blood pressure 114/72, respirations 20, and saturation 98% on room air. GENERAL: The patient is awake, alert, in no apparent distress. LUNGS: Excellent air entry. Crackles are present dependently still. HEART: Normal rate regular. ABDOMEN: Soft, nontender, and nondistended. Bowel sounds are positive. MUSCULOSKELETAL: No cyanosis or clubbing. There is no pitting in the bilateral lower extremities. NEUROLOGIC: Grossly nonfocal. LABORATORY DATA: WBC 15.7, hemoglobin 12.9, and platelets 334,000. Her band count is dropping, neutrophil count is improving, and her lymphocytes are rebounding. Sodium 135 and potassium 3.2. Basic metabolic profile is otherwise unremarkable. Bicarb is back into the normal range. Respiratory virus panel, urine culture, blood culture x2 remain negative. IMAGING DATA: Chest x-ray demonstrates an improvement in the alveolar opacification of bilateral lung joseph. There is still a dense right lower lobe infiltrate. There may be an effusion there. ASSESSMENT: 1. Acute hypoxic respiratory failure, resolved. 2. Community-acquired pneumonia. 3. Iatrogenic volume overload, resolved. 4. Sepsis without end-organ damage. DISCUSSION AND PLAN: I will do a bedside ultrasound. If this is unremarkable, the patient can be discharged today on her oral antibiotics. She is back to euvolemia. As such, Lasix will be interrupted. Pulmonary Critical Care will continue to follow along if she remains in-house, but from my perspective, she is stable for transition out of the hospital today. I have counseled the patient that if things get worse and not better, she is to return to the emergency department. If fluid is present, she will need to stay in the hospital until some preliminary reports are back. Job ID: [id number] [facility]
--- NOTE | 2018-04-08 11:25 | PDOC.PN ---
- Subjective Encounter Start Date: 04/08/18 Encounter Start Time: 09:00 she is tachycardic, she still appears tachypneic, her chest xray does not appear much better, she has not walked yet - Objective Resuscitation Status - Order Detail: 04/04/18 23:25 Resuscitation Status Routine Resuscitation Status: FULL: Full Resuscitation MAR Reviewed: Yes Vital Signs & Weight: Vital Signs (12 hours) Temp Pulse Resp BP Pulse Ox 04/08/18 09:10 98.1 F 104 H 20 114/72 98 04/08/18 08:53 92 L 04/08/18 08:00 100 04/08/18 03:37 97.6 F 104 H 16 122/73 97 04/07/18 23:53 98.0 F 104 H 18 109/76 97 Weight Admit Weight 3.012 oz Weight 180 lb Most Recent Monitor Data Heart Rate from ECG 108 NIBP 145/85 NIBP BP-Mean 110 Respiration from ECG 27 SpO2 99 I&O: 04/07/18 04/08/18 04/09/18 06:59 06:59 06:59 Intake Total 558 522 Output Total 1655 1610 Balance -1097 -1088 Result Diagrams: 04/08/18 04:49 04/08/18 04:49 Radiology Reviewed by me: Yes (chest xray reviewed) EKG Reviewed by me: Yes (sinus tachycardia) Phys Exam - Physical Examination Constitutional: NAD HEENT: PERRLA, moist MMs, sclera anicteric Neck: no JVD, supple Respiratory: no wheezing, no rhonchi basal rales Cardiovascular: RRR, no significant murmur, no rub tachycardia Gastrointestinal: soft, non-tender, no distention, positive bowel sounds Musculoskeletal: no edema, pulses present Neurological: non-focal, normal sensation Lymphatic: no nodes Psychiatric: normal affect Skin: no rash, normal turgor Dx/Plan (1) Right lower lobe pneumonia Code(s): J18.1 - LOBAR PNEUMONIA, UNSPECIFIED ORGANISM Status: Acute Comment : supecting from streptoccocal pneumonie (2) Sepsis due to pneumonia Code(s): J18.9 - PNEUMONIA, UNSPECIFIED ORGANISM; A41.9 - SEPSIS, UNSPECIFIED ORGANISM Status: Acute (3) Abnormal LFTs Code(s): R94.5 - ABNORMAL RESULTS OF LIVER FUNCTION STUDIES Status: Acute Comment: due to sepsis (4) Hypokalemia Code(s): E87.6 - HYPOKALEMIA Status: Acute (5) Hyponatremia Code(s): E87.1 - HYPO-OSMOLALITY AND HYPONATREMIA Status: Acute (6) Obesity (BMI 30.0-34.9) Code(s): E66.9 - OBESITY, UNSPECIFIED Status: Chronic - Plan cont current plan of care, continue antibiotics, respiratory therapy * bandemia improving * continue levaquin * will start PT today * will repeat labs tomorrow * I would keep her in hospital today and transfer to medical * will see how she does next 24 hours * I am concerned about her bounce back to ER * medication reviewed as below * symptomatic treatment. Review of Systems - Review of Systems Eyes: negative: Pain, Vision Change, Conjunctivae Inflammation, Eyelid Inflammation, Redness, Other ENT: negative: Ear Pain, Ear Discharge, Nose Pain, Nose Discharge, Nose Congestion, Mouth Pain, Mouth Swelling, Throat Pain, Throat Swelling, Other Respiratory: Cough, Shortness of Breath, SOB with Excertion. negative: Dry, Hemoptysis, Pleuritic Pain, Sputum, Wheezing Cardiovascular: negative: chest pain, palpitations, orthopnea, paroxysmal nocturnal dyspnea, edema, light headedness, other Gastrointestinal: negative: Nausea, Vomiting, Abdominal Pain, Diarrhea, Constipation, Melena, Hematochezia, Other Genitourinary: negative: Dysuria, Frequency, Incontinence, Hematuria, Retention , Other Musculoskeletal: negative: Neck Pain, Shoulder Pain, Arm Pain, Back Pain, Hand Pain, Leg Pain, Foot Pain, Other - Medications/Allergies Allergies/Adverse Reactions: Allergies Allergy/AdvReac Type Severity Reaction Status Date / Time Sulfa (Sulfonamide Allergy Verified 04/05/18 13:05 Antibiotics) Medications: Current Medications Acetaminophen (Tylenol) 650 mg PO Q4H PRN PRN Reason: Headache/Fever/Mild Pain (1-3) Last Admin: 04/05/18 12:59 Dose: 650 mg Hydrocodone Bitart/Acetaminophen ([place] 5/325) 1 tab PO Q4H PRN PRN Reason: Moderate Pain (4-6) Last Admin: 04/08/18 04:50 Dose: 1 tab Albuterol/Ipratropium (Duoneb) 3 ml NEB [id number] PRN PRN Reason: SOB &/or Wheezing Last Admin: 04/06/18 03:11 Dose: 3 ml Bisacodyl (Dulcolax) 10 mg PO DAILYPRN PRN PRN Reason: Constipation Calcium Carbonate (Tums) 1,000 mg PO Q4H PRN PRN Reason: Heartburn or Indigestion Enoxaparin Sodium (Lovenox) 40 mg SC 0900 [facility] Last Admin: 04/07/18 09:00 Dose: 40 mg Fluticasone Propionate (Flonase Nasal [place]) 0 gm NASAL DAILY [facility] Last Admin: 04/07/18 11:15 Dose: 2 spr Furosemide (Lasix) 20 mg IVP 0600 [facility] Last Admin: 04/08/18 05:50 Dose: 20 mg Levofloxacin (Levaquin) 750 mg PO 0600 [facility] Stop: 04/11/18 06:01 Last Admin: 04/08/18 04:50 Dose: 750 mg Loperamide HCl (Imodium) 2 mg PO PRN PRN PRN Reason: Diarrhea/Loose Stools Ondansetron HCl (Zofran Odt) 4 mg PO Q6H PRN PRN Reason: Nausea/Vomiting Ondansetron HCl (Zofran) 4 mg IVP Q6H PRN PRN Reason: Nausea/Vomiting Phenol (Chloraseptic [place] 180 Ml Bot) 0 ml PO PRN PRN PRN Reason: SORE THROAT Last Admin: 04/06/18 00:47 Dose: 2 spr Potassium Chloride (K-Dur) 40 meq PO Q4H [facility] Stop: 04/08/18 13:46 Senna/Docusate Sodium (Senokot S) 2 tab PO BIDPRN PRN PRN Reason: Constipation Sodium Chloride (Flush - Normal Saline) 10 ml IVF Q12HR PRN PRN Reason: Saline Flush Sodium Chloride (Flush - Normal Saline) 10 ml IVF PRN PRN PRN Reason: Saline Flush Throat Lozenges (Cepastat Lozenges) 1 jef PO PRN PRN PRN Reason: SORE THROAT Last Admin: 04/06/18 00:47 Dose: 1 jef Zolpidem Tartrate (Ambien) 5 mg PO HSPRN PRN PRN Reason: Insomnia Last Admin: 04/07/18 21:22 Dose: 5 mg
[2018-04-08] MEDS: Enoxaparin Sodium 40 MG/0.4 ML SYRINGE SC SCH (11:41)
[2018-04-08] MEDS: Potassium Chloride 20 MEQ TAB PO SCH ×2 (11:44→15:53)
[2018-04-08] MEDS: Fluticasone Propionate Nasal Spray 16 gm Bottle NASAL SCH (11:44)
[2018-04-08 16:17] LABS: Pleural Fluid, Protein 4.1 g/dL
[2018-04-08 16:41] LABS: BF Color Yellow; Body Fluid Source THORACENTESIS FLD; Clarity Hazy (Clear); Tube # EDTA; WBC/NonHematic-Auto 4040 /cumm
[2018-04-08 16:47] LABS: BF RBC Count - Manual 2900 /cumm
[2018-04-08 17:15] LABS: BF Segmented Neutrophils 57 %; Cell Count Non Hematic 19 %; Lymphocytes 24 %
--- NOTE | 2018-04-08 21:54 | OP ---
DATE OF PROCEDURE: 04/08/2018 SERVICE: Pulmonary Medicine. PROCEDURE: Right-sided pleural drainage with catheter insertion under ultrasound guidance. CONSENT: Risks and benefits of the procedure were explained to the patient's father. All questions were answered and alternative options explained. MEDICATIONS USED: Lidocaine 1% without epinephrine, total quantity 10 mL. PREOPERATIVE DIAGNOSES: 1. Community-acquired pneumonia. 2. Pleural effusion. POSTPROCEDURE DIAGNOSES: 1. Community-acquired pneumonia. 2. Pleural effusion. DESCRIPTION OF PROCEDURE: Time-out was performed by the procedure team and patient. The patient was positively identified using name and date of . The procedure site was marked. Vital sign monitoring was accomplished by noninvasive hemodynamic monitoring, pulse oximetry, and telemetry. In the seated position, the right posterior hemithorax was examined using ultrasound probe. The diaphragm and pleural fluid were easily identified. The skin was prepped and draped in usual sterile fashion and anesthetized with 1% lidocaine without epinephrine. A finder needle was inserted in the pleural space with return of cloudy yellow pleural fluid. A pleural drainage catheter was inserted in the same location and a total quantity of 400 mL of pleural fluid was withdrawn by syringe pump technique. A sample was sent for analysis. Evacuation of fluid was terminated because the fluid stopped coming. At the end of the procedure, estimated pleural pressure, measured by manometry, was -16 cm of pleural fluid. The intact catheter was withdrawn on exhalation and a sterile dressing was applied. The patient had stable vitals throughout the entire procedure. ESTIMATED BLOOD LOSS: 2 mL. COMPLICATIONS: Temporary pleuritic chest discomfort that resolved after 5 minutes. Job ID: [id number]
[2018-04-09] MEDS: Furosemide 40 MG/4 ML VIAL IVP SCH (06:30)
[2018-04-09 08:12] LABS: #Basophils 0.1 thou/uL (0.0-0.2); #Eosinphils 0.1 thou/uL (0.0-0.7); #Lymphocytes 3.3 thou/uL (1.20-3.40); #Monocytes 1.1 thou/uL (0.11-0.59); #Neutrophils 10.5 thou/uL (1.40-6.50); %Basophils 0.4 % (0.0-1.0); %Eosinophils 0.5 % (0.0-10.0); %Lymphocytes 21.7 % (21.0-51.0); %Monocytes 7.4 % (0.0-10.0); %Neutrophils 70.1 % (42.0-75.0); Hemoglobin 13.7 g/dL (12.0-16.0); Mean Corpuscular HGB CONC 34.3 g/dL (32.0-36.0); Mean Corpuscular Hemoglobin 31.2 pg (27.0-31.0); Mean Corpuscular Volume 90.9 fL (78.0-98.0); Mean Platelet Volume 6.5 fL (7.4-10.4); Platelet Count 412 thou/uL (130-400); RBC Distribution Width 12.1 % (11.5-14.5); Red Blood Cell (RBC) Count 4.38 mill/uL (4.20-5.40)
[2018-04-09 08:18] LABS: Anion Gap 17 mmol/L (10-20); BUN (Urea Nitrogen) 10 mg/dL (7.0-18.7); Calc. Creatinine Clearance 176 mL/min (70-130); Calcium 8.9 mg/dL (7.8-10.44); Carbon Dioxide 25 mmol/L (22-29); Chloride 100 mmol/L (98-107); Estimated GFR-MDRD Greater than 90; Glucose 148 mg/dL (70-105); Potassium 3.5 mmol/L (3.5-5.1); Sodium 138 mmol/L (136-145)
--- NOTE | 2018-04-09 08:56 | PDOC.PN ---
- Subjective Encounter Start Date: 04/09/18 Encounter Start Time: 07:30 Patient seen and examined. No new complaints. No overnight events - Objective Resuscitation Status - Order Detail: 04/04/18 23:25 Resuscitation Status Routine Resuscitation Status: FULL: Full Resuscitation MAR Reviewed: Yes Vital Signs & Weight: Vital Signs (12 hours) Temp Pulse Resp BP Pulse Ox 04/09/18 08:00 93 L 04/09/18 07:41 97.3 F L 116 H 132/95 H 93 L 04/09/18 07:39 92 L 04/09/18 04:20 97.9 F 110 H 21 H 109/92 H 100 04/09/18 00:16 97.6 F 119 H 21 H 113/84 98 04/09/18 00:00 98 Weight Admit Weight 3.012 oz Weight 180 lb Most Recent Monitor Data Heart Rate from ECG 108 NIBP 145/85 NIBP BP-Mean 110 Respiration from ECG 27 SpO2 99 I&O: 04/08/18 04/09/18 04/10/18 06:59 06:59 06:59 Intake Total 522 1260 Output Total 1610 600 Balance -1088 660 Result Diagrams: 04/09/18 07:20 04/09/18 07:20 EKG Reviewed by me: Yes (sinus tachycardia) Phys Exam - Physical Examination Constitutional: NAD HEENT: PERRLA, moist MMs, sclera anicteric Neck: no JVD, supple Respiratory: no wheezing, no rhonchi basilar rales, reduced air entry Cardiovascular: RRR, no significant murmur, no rub tachycardia Gastrointestinal: soft, non-tender, no distention, positive bowel sounds Musculoskeletal: no edema, pulses present Neurological: non-focal, normal sensation Lymphatic: no nodes Psychiatric: normal affect, A&O x 3 Skin: no rash, normal turgor Dx/Plan (1) Acute respiratory failure with hypoxemia Code(s): J96.01 - ACUTE RESPIRATORY FAILURE WITH HYPOXIA Status: Acute (2) Right lower lobe pneumonia Code(s): J18.1 - LOBAR PNEUMONIA, UNSPECIFIED ORGANISM Status: Acute Comment : supecting from streptoccocal pneumonie (3) Parapneumonic effusion Code(s): J18.9 - PNEUMONIA, UNSPECIFIED ORGANISM; J91.8 - PLEURAL EFFUSION IN OTHER CONDITIONS CLASSIFIED ELSEWHERE Status: Acute (4) Sepsis with acute organ dysfunction Code(s): A41.9 - SEPSIS, UNSPECIFIED ORGANISM; R65.20 - SEVERE SEPSIS WITHOUT SEPTIC SHOCK Status: Acute (5) Sepsis due to pneumonia Code(s): J18.9 - PNEUMONIA, UNSPECIFIED ORGANISM; A41.9 - SEPSIS, UNSPECIFIED ORGANISM Status: Acute (6) Abnormal LFTs Code(s): R94.5 - ABNORMAL RESULTS OF LIVER FUNCTION STUDIES Status: Acute Comment: due to sepsis (7) Hypokalemia Code(s): E87.6 - HYPOKALEMIA Status: Acute (8) Hyponatremia Code(s): E87.1 - HYPO-OSMOLALITY AND HYPONATREMIA Status: Acute (9) Obesity (BMI 30.0-34.9) Code(s): E66.9 - OBESITY, UNSPECIFIED Status: Chronic - Plan cont current plan of care, continue antibiotics, respiratory therapy * s/p thoracencesis, fluid c/w parapneumonic effusion * continue levaquin * still has tachycardia and tachypnea, will monitor in hospital * she is not ready for discharge * will repeat chest xray. Review of Systems - Review of Systems ENT: negative: Ear Pain, Ear Discharge, Nose Pain, Nose Discharge, Nose Congestion, Mouth Pain, Mouth Swelling, Throat Pain, Throat Swelling, Other Respiratory: Cough, Shortness of Breath. negative: Dry, Hemoptysis, SOB with Excertion, Pleuritic Pain, Sputum, Wheezing Cardiovascular: negative: chest pain, palpitations, orthopnea, paroxysmal nocturnal dyspnea, edema, light headedness, other Gastrointestinal: negative: Nausea, Vomiting, Abdominal Pain, Diarrhea, Constipation, Melena, Hematochezia, Other Genitourinary: negative: Dysuria, Frequency, Incontinence, Hematuria, Retention , Other Musculoskeletal: negative: Neck Pain, Shoulder Pain, Arm Pain, Back Pain, Hand Pain, Leg Pain, Foot Pain, Other - Medications/Allergies Allergies/Adverse Reactions: Allergies Allergy/AdvReac Type Severity Reaction Status Date / Time Sulfa (Sulfonamide Allergy Verified 04/05/18 13:05 Antibiotics) Medications: Current Medications Acetaminophen (Tylenol) 650 mg PO Q4H PRN PRN Reason: Headache/Fever/Mild Pain (1-3) Last Admin: 04/05/18 12:59 Dose: 650 mg Hydrocodone Bitart/Acetaminophen ([place] 5/325) 1 tab PO Q4H PRN PRN Reason: Moderate Pain (4-6) Last Admin: 04/08/18 04:50 Dose: 1 tab Albuterol/Ipratropium (Duoneb) 3 ml NEB [id number] PRN PRN Reason: SOB &/or Wheezing Last Admin: 04/06/18 03:11 Dose: 3 ml Bisacodyl (Dulcolax) 10 mg PO DAILYPRN PRN PRN Reason: Constipation Calcium Carbonate (Tums) 1,000 mg PO Q4H PRN PRN Reason: Heartburn or Indigestion Enoxaparin Sodium (Lovenox) 40 mg SC 0900 [facility] Last Admin: 04/08/18 11:41 Dose: 40 mg Fluticasone Propionate (Flonase Nasal [place]) 0 gm NASAL DAILY [facility] Last Admin: 04/08/18 11:44 Dose: 2 spr Furosemide (Lasix) 20 mg IVP 0600 [facility] Last Admin: 04/09/18 06:30 Dose: 20 mg Levofloxacin (Levaquin) 750 mg PO 0600 [facility] Stop: 04/11/18 06:01 Last Admin: 04/09/18 06:30 Dose: 750 mg Loperamide HCl (Imodium) 2 mg PO PRN PRN PRN Reason: Diarrhea/Loose Stools Ondansetron HCl (Zofran Odt) 4 mg PO Q6H PRN PRN Reason: Nausea/Vomiting Ondansetron HCl (Zofran) 4 mg IVP Q6H PRN PRN Reason: Nausea/Vomiting Phenol (Chloraseptic [place] 180 Ml Bot) 0 ml PO PRN PRN PRN Reason: SORE THROAT Last Admin: 04/06/18 00:47 Dose: 2 spr Senna/Docusate Sodium (Senokot S) 2 tab PO BIDPRN PRN PRN Reason: Constipation Sodium Chloride (Flush - Normal Saline) 10 ml IVF Q12HR PRN PRN Reason: Saline Flush Last Admin: 04/09/18 06:30 Dose: 10 ml Sodium Chloride (Flush - Normal Saline) 10 ml IVF PRN PRN PRN Reason: Saline Flush Throat Lozenges (Cepastat Lozenges) 1 jef PO PRN PRN PRN Reason: SORE THROAT Last Admin: 12/19/18 00:47 Dose: 1 ejf Zolpidem Tartrate (Ambien) 5 mg PO HSPRN PRN PRN Reason: Insomnia Last Admin: 04/07/18 21:22 Dose: 5 mg
[2018-04-09] MEDS: Enoxaparin Sodium 40 MG/0.4 ML SYRINGE SC SCH (09:51)
[2018-04-09] MEDS: Fluticasone Propionate Nasal Spray 16 gm Bottle NASAL SCH (09:52)
--- NOTE | 2018-04-09 10:50 | RAD ---
PORTABLE CHEST 1 VIEW: Date: 04/09/18 Time: 0921 hours HISTORY: Pneumonia and effusion. FINDINGS: Comparison made with exam from previous day. The heart size is normal. The left lung is clear. Moderate right-sided pleural effusion with adjacent infiltrate/atelectatic change again seen. The patient is post cholecystectomy. IMPRESSION: Stable exam. POS: [facility]
--- NOTE | 2018-04-09 11:14 | PRG ---
DATE OF SERVICE: 04/09/2018 SUBJECTIVE: A 37-year-old female. OBJECTIVE: VITAL SIGNS: Temperature is 97, pulse 116, sats 93% on 1 L, blood pressure 132/95. GENERAL: She underwent a thoracentesis yesterday. Denies difficulty breathing. No coughing or wheezing. CHEST: Decreased breath sounds, right base. Left unremarkable. CARDIAC: Normal S1 and S2. No gallops. ABDOMEN: Soft. LABORATORY DATA: White count 15,000, H and H pleural effusion showed a total protein of 4. LDH was 2311. Glucose 66 and 55 segs. X-ray still shows right-sided pleural effusion. IMPRESSION: Parapneumonic effusion with elevated LDH, suggestive of probable loculation. I have added clindamycin to her oral antibiotic regimen. CT chest is obtained . Job ID: [id number]
--- NOTE | 2018-04-09 12:24 | CT ---
CT CHEST WITHOUT CONTRAST: Date: 04/09/18 HISTORY: Pleural effusion. FINDINGS: Absence of IV contrast reduces the sensitivity of exam, particularly for evaluation of mediastinal, h ilar, and vascular structures. A moderate size right pleural effusion is seen with adjacent atelectatic change versus consolidation. There are mild dependent changes in the left lung base. No pericardial or left-sided pleural effusio n is seen. No pneumothoraces are identified. The tracheobronchial tree is patent. There are mild dege nerative changes in the spine. Upper abdominal tomograms demonstrate changes of cholecystectomy. IMPRESSION: Moderate sized right pleural effusion with adjacent consolidation/atelectatic change. POS: [facility]
[2018-04-09] MEDS ORDERED: Lidocaine 1% w/Epinephrine 1:100K 20 ML VIAL ONE (14:38)
[2018-04-09] MEDS: Clindamycin/D5W 600 MG in Premix Bag 1 BAG IVPB SCH ×2 (14:46→21:06)
[2018-04-09] MEDS ORDERED: Fentanyl 100 MCG/2 ML VIAL SLOW IVP SCH (15:15)
--- NOTE | 2018-04-09 16:40 | RAD ---
PORTABLE CHEST ONE VIEW: 04/09/18 at 4:07 p.m. HISTORY: Chest tube placement. FINDINGS/IMPRESSION: There has been interval placement of a right sided chest tube since earlier exam of 9:21 a.m. from e same date. No pneumothorax is seen. Right sided pleural effusion and adjacent consolidation/atelect atic change are again seen. POS: [facility]
[2018-04-09] MEDS: HYDROcodone/Acetaminophen 5/325 mg Tablet PO PRN (20:08)
[2018-04-09] MEDS: Ondansetron PF 4 MG/2 ML Vial IVP PRN (21:06)
--- NOTE | 2018-04-09 21:56 | CON ---
DATE OF CONSULTATION: HISTORY OF PRESENT ILLNESS: This is a 37-year-old mentally challenged patient, who presented to the emergency room on 04/04/2018, with complaints of right-sided chest and abdominal discomfort. She was felt to have a pneumonia at that time with a small effusion. Her white count was mildly elevated at 11,000. She was admitted to the hospital and seen by Dr. Weaver on 04/06/2018. She was initially treated with mild diuresis and antibiotic adjustment due to her tachypnea. On 04/08/2018, she underwent a thoracentesis and although the pH was not depressed, about 400 mL of fluid was removed and the LDH was 2000. It was felt that the patient had a high likelihood of developing a loculated effusion and I have been asked to place a chest tube. Her chest CT today showed moderate basilar pleural effusion without loculations. She did have some consolidation of the lower lobe. Her white count is elevated somewhat since admission to a current level of 15,000. Renal function has remained stable and temperature has remained satisfactory. She does continue to have resting tachycardia. PAST MEDICAL HISTORY: Includes a history of nephrolithiasis and prior left elbow surgery and cholecystectomy. She does have anxiety and depression as well. SOCIAL HISTORY: She lives with her foster mother and I have contacted her real mother today for consent for a chest tube. HOME MEDICATIONS: Include; 1. Prozac. 2. Claritin. 3. Flonase. PHYSICAL EXAMINATION: GENERAL: On examination, she is an alert and cooperative lady, in no distress. VITAL SIGNS: Blood pressure of 122/ heart rate of 120, and O2 saturation on nasal cannula 1 L of 93%. NECK: No carotid bruits. LUNGS: Clear to auscultation anteriorly. CARDIAC: Tachycardia. ABDOMEN: Obese and nontender. EXTREMITIES: No peripheral edema at this time. PLAN: At this time is for placement of a chest tube and informed consent has been obtained. Job ID: [id number]
[2018-04-09] MEDS: Zolpidem Tartrate 5 MG TAB PO PRN (23:45)
[2018-04-10] MEDS: HYDROcodone/Acetaminophen 5/325 mg Tablet PO PRN ×2 (01:55→12:51)
[2018-04-10] MEDS: Clindamycin/D5W 600 MG in Premix Bag 1 BAG IVPB SCH ×3 (06:08→21:20)
[2018-04-10] MEDS: Furosemide 40 MG/4 ML VIAL IVP SCH (06:08)
[2018-04-10 07:49] LABS: Anion Gap 15 mmol/L (10-20); BUN (Urea Nitrogen) 11 mg/dL (7.0-18.7); Calc. Creatinine Clearance 176 mL/min (70-130); Carbon Dioxide 26 mmol/L (22-29); Chloride 98 mmol/L (98-107); Estimated GFR-MDRD Greater than 90; Glucose 147 mg/dL (70-105); Potassium 3.7 mmol/L (3.5-5.1); Sodium 135 mmol/L (136-145)
[2018-04-10 08:00] LABS: CRP (Inflammatory) 39.64 mg/dL (= or < 0.5)
[2018-04-10 08:08] LABS: Band 9 % (5-11); Eosinophils 2 % (0-10); Lymphocytes 22 % (21-51); MDiff Complete? YES; Mean Corpuscular HGB CONC 32.6 g/dL (32.0-36.0); Mean Corpuscular Hemoglobin 30.1 pg (27.0-31.0); Mean Corpuscular Volume 92.3 fL (78.0-98.0); Mean Platelet Volume 6.2 fL (7.4-10.4); Monocytes 7 % (0-10); Neutrophil 60 % (42-75); Platelet Count 497 thou/uL (130-400); RBC Distribution Width 12.3 % (11.5-14.5); Red Blood Cell (RBC) Count 4.66 mill/uL (4.20-5.40); White Blood Cell (WBC) Count 23.3 thou/uL (4.8-10.8)
--- NOTE | 2018-04-10 09:06 | PDOC.PN ---
- Subjective Encounter Start Date: 04/10/18 Encounter Start Time: 08:00 pt still has dyspnea, tachycardia, still has chest pain, she had chest tube placed but little drainage, chest xray has no improvement today planned for surgery by CT surgeon - Objective Resuscitation Status - Order Detail: 04/04/18 23:25 Resuscitation Status Routine Resuscitation Status: FULL: Full Resuscitation MAR Reviewed: Yes Vital Signs & Weight: Vital Signs (12 hours) Temp Pulse Resp BP Pulse Ox 04/10/18 08:00 92 L 04/10/18 07:14 98.0 F 113 H 18 147/111 H 92 L 04/10/18 06:00 149/106 H 04/10/18 05:00 141/105 H 04/10/18 04:00 98.4 F 108 H 20 132/94 H 94 L 04/10/18 03:00 114/90 04/10/18 02:05 149/106 H 04/10/18 02:00 161/106 H 04/10/18 01:00 135/103 H 04/09/18 23:57 98.1 F 119 H 20 106/92 H 95 Weight Admit Weight 3.012 oz Weight 180 lb Most Recent Monitor Data Heart Rate from ECG 108 NIBP 145/85 NIBP BP-Mean 110 Respiration from ECG 27 SpO2 99 I&O: 04/09/18 04/10/18 04/11/18 06:59 06:59 06:59 Intake Total 1260 1050 Output Total 600 450 Balance 660 600 Result Diagrams: 04/10/18 07:21 04/10/18 07:20 Radiology Reviewed by me: Yes (chest xray reviewed) EKG Reviewed by me: Yes (sinus tachycardia) Phys Exam - Physical Examination Constitutional: NAD HEENT: PERRLA, moist MMs, sclera anicteric Neck: no JVD, supple Respiratory: no wheezing, no rhonchi air entry reduced right base with rales Cardiovascular: RRR, no significant murmur, no rub tachycardia Gastrointestinal: soft, non-tender, no distention, positive bowel sounds Musculoskeletal: no edema, pulses present Neurological: non-focal, normal sensation, moves all 4 limbs Lymphatic: no nodes Psychiatric: normal affect, A&O x 3 Skin: no rash, normal turgor Dx/Plan (1) Acute respiratory failure with hypoxemia Code(s): J96.01 - ACUTE RESPIRATORY FAILURE WITH HYPOXIA Status: Acute Comment: required bipap, now off bipap (2) Right lower lobe pneumonia Code(s): J18.1 - LOBAR PNEUMONIA, UNSPECIFIED ORGANISM Status: Acute Comment : supecting from streptoccocal pneumonie (3) Parapneumonic effusion Code(s): J18.9 - PNEUMONIA, UNSPECIFIED ORGANISM; J91.8 - PLEURAL EFFUSION IN OTHER CONDITIONS CLASSIFIED ELSEWHERE Status: Acute Comment: s/p thoracentesis, s/p chest tube placement (4) Sepsis with acute organ dysfunction Code(s): A41.9 - SEPSIS, UNSPECIFIED ORGANISM; R65.20 - SEVERE SEPSIS WITHOUT SEPTIC SHOCK Status: Acute (5) Sepsis due to pneumonia Code(s): J18.9 - PNEUMONIA, UNSPECIFIED ORGANISM; A41.9 - SEPSIS, UNSPECIFIED ORGANISM Status: Acute (6) Abnormal LFTs Code(s): R94.5 - ABNORMAL RESULTS OF LIVER FUNCTION STUDIES Status: Resolved Comment: due to sepsis (7) Hypokalemia Code(s): E87.6 - HYPOKALEMIA Status: Resolved (8) Hyponatremia Code(s): E87.1 - HYPO-OSMOLALITY AND HYPONATREMIA Status: Resolved (9) Obesity (BMI 30.0-34.9) Code(s): E66.9 - OBESITY, UNSPECIFIED Status: Chronic - Plan cont current plan of care, continue antibiotics, respiratory therapy * today plan for surgery as per cardiovascular surgeon * continue clindamycin and will change levaquin to IV * medication reviewed as below * symptomatic treatment. Review of Systems - Review of Systems ENT: negative: Ear Pain, Ear Discharge, Nose Pain, Nose Discharge, Nose Congestion, Mouth Pain, Mouth Swelling, Throat Pain, Throat Swelling, Other Respiratory: Shortness of Breath, SOB with Excertion, Pleuritic Pain. negative : Cough, Dry, Hemoptysis, Sputum, Wheezing Cardiovascular: negative: chest pain, palpitations, orthopnea, paroxysmal nocturnal dyspnea, edema, light headedness, other Gastrointestinal: negative: Nausea, Vomiting, Abdominal Pain, Diarrhea, Constipation, Melena, Hematochezia, Other Genitourinary: negative: Dysuria, Frequency, Incontinence, Hematuria, Retention , Other Musculoskeletal: negative: Neck Pain, Shoulder Pain, Arm Pain, Back Pain, Hand Pain, Leg Pain, Foot Pain, Other Skin: negative: Rash, Lesions, Nelson, Bruising, Other - Medications/Allergies Allergies/Adverse Reactions: Allergies Allergy/AdvReac Type Severity Reaction Status Date / Time Sulfa (Sulfonamide Allergy Verified 04/05/18 13:05 Antibiotics) Medications: Current Medications Acetaminophen (Tylenol) 650 mg PO Q4H PRN PRN Reason: Headache/Fever/Mild Pain (1-3) Last Admin: 04/05/18 12:59 Dose: 650 mg Hydrocodone Bitart/Acetaminophen ([place] 5/325) 1 tab PO Q4H PRN PRN Reason: Moderate Pain (4-6) Last Admin: 04/10/18 01:55 Dose: 1 tab Albuterol/Ipratropium (Duoneb) 3 ml NEB [id number] PRN PRN Reason: SOB &/or Wheezing Last Admin: 04/06/18 03:11 Dose: 3 ml Bisacodyl (Dulcolax) 10 mg PO DAILYPRN PRN PRN Reason: Constipation Calcium Carbonate (Tums) 1,000 mg PO Q4H PRN PRN Reason: Heartburn or Indigestion Enoxaparin Sodium (Lovenox) 40 mg SC 0900 [facility] Last Admin: 04/09/18 09:51 Dose: 40 mg Fluticasone Propionate (Flonase Nasal [place]) 0 gm NASAL DAILY [facility] Last Admin: 04/09/18 09:52 Dose: 2 spr Clindamycin Phosphate/Dextrose (600 mg/ Device) 50 mls @ 100 mls/hr IVPB Q8HR [facility] Last Admin: 04/10/18 06:08 Dose: 50 mls Levofloxacin 750 mg/ Device 150 mls @ 100 mls/hr IVPB Q24HR [facility] Loperamide HCl (Imodium) 2 mg PO PRN PRN PRN Reason: Diarrhea/Loose Stools Ondansetron HCl (Zofran Odt) 4 mg PO Q6H PRN PRN Reason: Nausea/Vomiting Ondansetron HCl (Zofran) 4 mg IVP Q6H PRN PRN Reason: Nausea/Vomiting Last Admin: 04/09/18 21:06 Dose: 4 mg Phenol (Chloraseptic [place] 180 Ml Bot) 0 ml PO PRN PRN PRN Reason: SORE THROAT Last Admin: 04/06/18 00:47 Dose: 2 spr Senna/Docusate Sodium (Senokot S) 2 tab PO BIDPRN PRN PRN Reason: Constipation Sodium Chloride (Flush - Normal Saline) 10 ml IVF Q12HR PRN PRN Reason: Saline Flush Last Admin: 04/09/18 06:30 Dose: 10 ml Sodium Chloride (Flush - Normal Saline) 10 ml IVF PRN PRN PRN Reason: Saline Flush Throat Lozenges (Cepastat Lozenges) 1 jef PO PRN PRN PRN Reason: SORE THROAT Last Admin: 04/06/18 00:47 Dose: 1 jef Zolpidem Tartrate (Ambien) 5 mg PO HSPRN PRN PRN Reason: Insomnia Last Admin: 04/09/18 23:45 Dose: 5 mg
--- NOTE | 2018-04-10 09:27 | RAD ---
FRONTAL RADIOGRAPH CHEST: Date; 04/10/18 COMPARISON: 04/09/18. HISTORY: Evaluate chest tube, pneumonia. FINDINGS: Stable right basilar chest tube. Stable nonspecific pleural and parenchymal opacity of inferior half right hemithorax. No pneumothorax seen on either side. Left lung relatively clear. IMPRESSION: Stable right basilar chest tube with prominent persistent pleural and parenchymal opacity in the righ t lung base. POS: [facility]
[2018-04-10] MEDS: Fluticasone Propionate Nasal Spray 16 gm Bottle NASAL SCH (10:28)
--- NOTE | 2018-04-10 10:36 | PRG ---
DATE OF SERVICE: 04/10/2018 SUBJECTIVE: This morning, she is awake, alert, and responsive. OBJECTIVE: VITAL SIGNS: Saturations are 92% on 2 L, temperature 98, pulse 113, and blood pressure 147/111. CHEST: Decreased breath sounds in the right lung. Left unremarkable. CARDIAC: Normal S1 and S2. No gallops. ABDOMEN: No masses. LABORATORY DATA: White count 23,000, H and H , slight left shift. IMAGING DATA: X-ray shows persistent right-sided pleural effusion. Chest tube reveals minimal drainage. IMPRESSION: 1. Loculated pleural effusion. 2. Leukocytosis. 3. Continue antibiotics, neb treatments, and supportive care. I agree with Dr. Briceno. She probably needs to go down for decortication, thoracoscopy. 4. We will follow. Job ID: [id number]
[2018-04-10] MEDS: Enoxaparin Sodium 40 MG/0.4 ML SYRINGE SC SCH (11:14)
[2018-04-10] MEDS ORDERED: Fentanyl 250 MCG/5 ML VIAL ONE (13:19)
[2018-04-10] MEDS ORDERED: Midazolam HCl 2 mg/2 ml Vial ONE (13:19)
[2018-04-10] MEDS ORDERED: Bupivacaine HCl 0.5%/Epinephrine 1:200,000/PF 30 ml Vial ONE (13:20)
[2018-04-10] MEDS ORDERED: PROPOFOL 200 MG/20 ML VIAL ONE (15:04)
[2018-04-10] MEDS ORDERED: Glycopyrrolate 0.2 MG/ML 5 ML SYRINGE ONE (15:04)
[2018-04-10] MEDS ORDERED: Lidocaine 1% PF 5 ML VIAL ONE (15:04)
[2018-04-10] MEDS ORDERED: Dexamethasone 20 MG/5 ML VIAL ONE (15:04)
[2018-04-10] MEDS ORDERED: Ondansetron PF 4 MG/2 ML Vial ONE (15:04)
[2018-04-10] MEDS ORDERED: Promethazine HCl 25 MG/ML VIAL IM PRN (16:09)
[2018-04-10] MEDS ORDERED: Promethazine HCl 25 MG/ML VIAL SLOW IVP PRN (16:09)
[2018-04-10] MEDS ORDERED: Ondansetron HCl/PF 4 MG/2 ML Vial IVP PRN (16:09)
[2018-04-10] MEDS ORDERED: Fentanyl 100 MCG/2 ML VIAL SLOW IVP PRN (16:26)
[2018-04-10] MEDS: Ondansetron PF 4 MG/2 ML Vial IVP PRN (16:59)
--- NOTE | 2018-04-10 17:21 | RAD ---
PORTABLE CHEST: HISTORY: Shortness of breath. Chest tube placement. COMPARISON: Earlier examination from the same day. FINDINGS: There are now two right-sided chest tubes in place. One is directed toward the right lung apex and o ne is in the right mid lung field, near the hilar region. There is reduction in the density in the r ight base, suggesting some reduction in the size of the effusion. Persistent atelectatic change is s een in the right base. I do not see any pneumothorax. The left lung is clear. IMPRESSION: Interval placement of a second right chest tube, with the tip of one of these tubes in the right apex . The tip of the other tube is now seen near the right hilar region. There has been a reduction in the density in the right base, which suggests possibly some resolving effusion. I do not see signs o f pneumothorax. There are persistent parenchymal changes in the right base and elevation of the righ t hemidiaphragm. POS: [facility]
[2018-04-10] MEDS: Zolpidem Tartrate 5 MG TAB PO PRN (21:20)
--- NOTE | 2018-04-10 21:48 | OP ---
DATE OF PROCEDURE: 04/10/2018 PREOPERATIVE DIAGNOSIS: Parapneumonic effusion. PROCEDURE PERFORMED: Placement of right chest tube. ANESTHESIA: 1% lidocaine with IV sedation. DESCRIPTION OF PROCEDURE: After placement in the left lateral decubitus position, the patient was prepped and draped. The patient then had palpation of the scapula and then anterior and mid axillary line and site was chosen to infiltrate with lidocaine with epi. Skin incision was made and blunt dissection carried down to the chest wall, where additional lidocaine was used to infiltrate over the top of the rib. Following this, the chest was gently entered with a hemostat and then after spreading, a finger was inserted to palpate the diaphragm and there were no obvious adhesions. The patient did have suction of some air at that point. A 32 tube was then gently advanced and secured to the skin. The patient had no output with the chest tube and chest x-ray is pending. Job ID: [id number]
--- NOTE | 2018-04-10 22:16 | OP ---
DATE OF PROCEDURE: 04/10/2018 PREOPERATIVE DIAGNOSIS: Empyema, right chest. POSTOPERATIVE DIAGNOSIS: Empyema, right chest. PROCEDURE PERFORMED: Right thoracoscopy with total lung decortication. ANESTHESIA: General. ESTIMATED BLOOD LOSS: 200. DESCRIPTION OF PROCEDURE: After adequate double-lumen endotracheal anesthesia had been obtained, the patient was placed in the left lateral decubitus position. The chest tube was removed and the patient was prepped and draped. Following this, a finger was inserted through the chest tube site to breakdown localized adhesions. Following this, #11 trocar was placed and a #5 scope was placed and the patient was noted to have no free space in the chest except where the chest tube had been sitting. Using the scope, some lung was mobilized over the pericardium anteriorly. Posteriorly, a separate incision was made of about 1-1/2 cm and a finger inserted and adhesions were broken down to allow placement of a clamp. With the scope and CO2 insufflation from the other site, a curved sponge stick clamp was used to mobilize the lung off the chest wall to allow for exposure. The lung was then fully mobilized off the chest wall and the fissure following which, gelatinous material was removed as well as irrigating with about 4 L of saline and water. After removing all the debris, two chest tubes were placed through the two trocar sites. Cultures were sent. There was probably about 200 mL of fluid and the rest was gelatinous loculated collections. Wounds were closed after Marcaine with epi was infiltrated into the incisions. The patient tolerated the procedure well. Job ID: [id number]
[2018-04-11] MEDS: HYDROcodone/Acetaminophen 5/325 mg Tablet PO PRN ×3 (00:56→21:14)
[2018-04-11] MEDS: Clindamycin/D5W 600 MG in Premix Bag 1 BAG IVPB SCH ×3 (04:47→21:14)
--- NOTE | 2018-04-11 09:51 | RAD ---
FRONTAL RADIOGRAPH CHEST: Date; 04/11/18 COMPARISON: 04/10/18. HISTORY: Evaluate chest following surgery. FINDINGS: There are two left-sided chest tubes in place. One of the chest tubes demonstrates a side port outsid e the right hemithorax. This chest tube may have been slightly retracted. There is hazy increased den sity in the right lung base suggesting pleural and parenchymal opacity, nonspecific. Left lung is rel atively clear. IMPRESSION: Right-sided chest tubes as above. Nonspecific increased pleural and parenchymal opacity in the right lung base. POS: [facility]
--- NOTE | 2018-04-11 10:06 | PDOC.PN ---
- Subjective Encounter Start Date: 04/11/18 Encounter Start Time: 08:30 pt feels subjectively better, less dyspnea, still has tachycardia, had decortication done - Objective Resuscitation Status - Order Detail: 04/04/18 23:25 Resuscitation Status Routine Resuscitation Status: FULL: Full Resuscitation MAR Reviewed: Yes Vital Signs & Weight: Vital Signs (12 hours) Temp Pulse Resp BP Pulse Ox 04/11/18 08:04 117 H 22 H 93 L 04/11/18 08:00 94 L 04/11/18 07:38 99.2 F 113 H 19 126/84 94 L 04/11/18 04:00 99.6 F 118 H 20 138/82 94 L 04/11/18 00:30 99.6 F 04/11/18 00:17 124 H 20 92 L 04/11/18 00:00 101.5 F H 127 H 20 138/79 92 L Weight Admit Weight 3.012 oz Weight 172 lb 12.8 oz Most Recent Monitor Data Heart Rate from ECG 108 NIBP 145/85 NIBP BP-Mean 110 Respiration from ECG 27 SpO2 99 I&O: 04/10/18 04/11/18 04/12/18 06:59 06:59 06:59 Intake Total 1050 1500 Output Total 450 1000 Balance 600 500 Result Diagrams: 04/10/18 07:21 04/10/18 07:20 Radiology Reviewed by me: Yes (chest xray reviewed ) EKG Reviewed by me: Yes (sinus tachycardia) Phys Exam - Physical Examination Constitutional: NAD HEENT: PERRLA, moist MMs, sclera anicteric Neck: no JVD, supple Respiratory: no wheezing, no rhonchi right base rales, reduced air entry Cardiovascular: RRR, no significant murmur, no rub tachycardia Gastrointestinal: soft, non-tender, no distention, positive bowel sounds Musculoskeletal: no edema, pulses present Neurological: non-focal, normal sensation, moves all 4 limbs Lymphatic: no nodes Psychiatric: normal affect, A&O x 3 Skin: no rash, normal turgor Dx/Plan (1) Acute respiratory failure with hypoxemia Code(s): J96.01 - ACUTE RESPIRATORY FAILURE WITH HYPOXIA Status: Acute Comment: required bipap, now off bipap (2) Right lower lobe pneumonia Code(s): J18.1 - LOBAR PNEUMONIA, UNSPECIFIED ORGANISM Status: Acute Comment : supecting from streptoccocal pneumonie (3) Parapneumonic effusion Code(s): J18.9 - PNEUMONIA, UNSPECIFIED ORGANISM; J91.8 - PLEURAL EFFUSION IN OTHER CONDITIONS CLASSIFIED ELSEWHERE Status: Acute Comment: s/p thoracentesis, s/p chest tube placement (4) Sepsis with acute organ dysfunction Code(s): A41.9 - SEPSIS, UNSPECIFIED ORGANISM; R65.20 - SEVERE SEPSIS WITHOUT SEPTIC SHOCK Status: Acute (5) Sepsis due to pneumonia Code(s): J18.9 - PNEUMONIA, UNSPECIFIED ORGANISM; A41.9 - SEPSIS, UNSPECIFIED ORGANISM Status: Acute (6) Abnormal LFTs Code(s): R94.5 - ABNORMAL RESULTS OF LIVER FUNCTION STUDIES Status: Resolved Comment: due to sepsis (7) Hypokalemia Code(s): E87.6 - HYPOKALEMIA Status: Resolved (8) Hyponatremia Code(s): E87.1 - HYPO-OSMOLALITY AND HYPONATREMIA Status: Resolved (9) Obesity (BMI 30.0-34.9) Code(s): E66.9 - OBESITY, UNSPECIFIED Status: Chronic - Plan cont current plan of care, continue antibiotics, respiratory therapy * continue levaquin and clindamycin * Chest tube as per cardiovascular surgeon * medication reviewed as below * symptomatic treatment * will monitor . Review of Systems - Review of Systems Constitutional: weakness. negative: fever, chills, sweats, malaise, other Respiratory: Cough, SOB with Excertion. negative: Dry, Shortness of Breath, Hemoptysis, Pleuritic Pain, Sputum, Wheezing Cardiovascular: negative: chest pain, palpitations, orthopnea, paroxysmal nocturnal dyspnea, edema, light headedness, other Gastrointestinal: negative: Nausea, Vomiting, Abdominal Pain, Diarrhea, Constipation, Melena, Hematochezia, Other Genitourinary: negative: Dysuria, Frequency, Incontinence, Hematuria, Retention , Other Musculoskeletal: negative: Neck Pain, Shoulder Pain, Arm Pain, Back Pain, Hand Pain, Leg Pain, Foot Pain, Other Skin: negative: Rash, Lesions, Nelson, Bruising, Other - Medications/Allergies Allergies/Adverse Reactions: Allergies Allergy/AdvReac Type Severity Reaction Status Date / Time Sulfa (Sulfonamide Allergy Verified 04/05/18 13:05 Antibiotics) Medications: Current Medications Acetaminophen (Tylenol) 650 mg PO Q4H PRN PRN Reason: Headache/Fever/Mild Pain (1-3) Last Admin: 04/05/18 12:59 Dose: 650 mg Hydrocodone Bitart/Acetaminophen ([place] 5/325) 1 tab PO Q4H PRN PRN Reason: Moderate Pain (4-6) Last Admin: 04/11/18 00:56 Dose: 1 tab Albuterol/Ipratropium (Duoneb) 3 ml NEB [id number] [facility] Last Admin: 04/11/18 08:04 Dose: 3 ml Bisacodyl (Dulcolax) 10 mg PO DAILYPRN PRN PRN Reason: Constipation Calcium Carbonate (Tums) 1,000 mg PO Q4H PRN PRN Reason: Heartburn or Indigestion Enoxaparin Sodium (Lovenox) 40 mg SC 0900 [facility] Last Admin: 04/10/18 11:14 Dose: Not Given Fentanyl (Sublimaze) 25 mcg SLOW IVP Q2H PRN PRN Reason: Pain Fluticasone Propionate (Flonase Nasal [place]) 0 gm NASAL DAILY [facility] Last Admin: 04/10/18 10:28 Dose: 2 spr Clindamycin Phosphate/Dextrose (600 mg/ Device) 50 mls @ 100 mls/hr IVPB Q8HR [facility] Last Admin: 04/11/18 04:47 Dose: 50 mls Levofloxacin 750 mg/ Device 150 mls @ 100 mls/hr IVPB Q24HR [facility] Last Admin: 04/10/18 10:27 Dose: 150 mls Loperamide HCl (Imodium) 2 mg PO PRN PRN PRN Reason: Diarrhea/Loose Stools Ondansetron HCl (Zofran Odt) 4 mg PO Q6H PRN PRN Reason: Nausea/Vomiting Ondansetron HCl (Zofran) 4 mg IVP Q6H PRN PRN Reason: Nausea/Vomiting Last Admin: 04/10/18 16:59 Dose: 4 mg Phenol (Chloraseptic [place] 180 Ml Bot) 0 ml PO PRN PRN PRN Reason: SORE THROAT Last Admin: 04/06/18 00:47 Dose: 2 spr Senna/Docusate Sodium (Senokot S) 2 tab PO BIDPRN PRN PRN Reason: Constipation Sodium Chloride (Flush - Normal Saline) 10 ml IVF Q12HR PRN PRN Reason: Saline Flush Last Admin: 04/09/18 06:30 Dose: 10 ml Sodium Chloride (Flush - Normal Saline) 10 ml IVF PRN PRN PRN Reason: Saline Flush Throat Lozenges (Cepastat Lozenges) 1 jef PO PRN PRN PRN Reason: SORE THROAT Last Admin: 04/06/18 00:47 Dose: 1 jef Zolpidem Tartrate (Ambien) 5 mg PO HSPRN PRN PRN Reason: Insomnia Last Admin: 04/10/18 21:20 Dose: 5 mg
[2018-04-11] MEDS: Fluticasone Propionate Nasal Spray 16 gm Bottle NASAL SCH (10:14)
[2018-04-11] MEDS: Enoxaparin Sodium 40 MG/0.4 ML SYRINGE SC SCH (10:15)
[2018-04-11] MEDS: Acetaminophen 325 MG TAB PO PRN (10:15)
[2018-04-11] MEDS: Cepastat Lozenges 1 LOZ PO PRN ×2 (10:34→16:21)
--- NOTE | 2018-04-11 15:02 | PRG ---
DATE OF SERVICE: 04/11/2018 SERVICE: Pulmonary Medicine. INTERVAL HISTORY: The patient is doing okay overnight. Her pain is under okay control. She denies any current fevers, chills, nausea, or vomiting. She is coughing a little bit, but not generating any sputum. Otherwise, there has been no interval change to her condition. PHYSICAL EXAMINATION: VITAL SIGNS: Afebrile. Pulse 126, blood pressure 119/89, respirations 18, saturation 94% on 3 L nasal cannula. GENERAL: The patient is awake, alert, in no apparent distress. LUNGS: Decent air entry. There is no prolonged expiratory phase or wheezing present. There are rhonchi on the right. HEART: Tachycardic. Regular. ABDOMEN: Soft, nontender, and nondistended. Bowel sounds are positive. MUSCULOSKELETAL: No cyanosis or clubbing. There is no pitting in the bilateral lower extremities. NEUROLOGIC: Grossly nonfocal. LABORATORY DATA: WBC 23.3, hemoglobin 14.0, platelets 497,000. Basic metabolic profile is essentially unremarkable. CRP is 39.6. Pleural fluid is significant for 57% neutrophils and an LDH of 2300. Total protein was elevated, but the amylase and glucose fell within normal limits. PH was only 7.5. All culture results remain negative to date. IMAGING: Chest x-ray demonstrates two right-sided thoracostomy tubes. There is right-sided pleural-parenchymal opacification noted. Additionally, one of the chest tubes side port is actually out of the thoracic cavity. ASSESSMENT: 1. Acute hypoxic respiratory failure. 2. Community acquired pneumonia. 3. Complicated parapneumonic pleural effusion. 4. Status post decortication, postop day 1. DISCUSSION AND PLAN: The patient is doing fine currently. Supportive care including antibiotics will be continued. If she is fever free for 24 hours, she can be transitioned over to p.o. Augmentin. Pulmonary Critical Care will continue to follow along. From my perspective, she is stable for transition out of the IM to the surgical unit. Job ID: [id number]
[2018-04-11] MEDS: Zolpidem Tartrate 5 MG TAB PO PRN (21:14)
[2018-04-12] MEDS: Clindamycin/D5W 600 MG in Premix Bag 1 BAG IVPB SCH ×3 (05:27→21:30)
--- NOTE | 2018-04-12 08:23 | RAD ---
PORTABLE CHEST 1 VIEW: Date: 04/12/18 Time: 0508 hours HISTORY: Status post decortication surgery. FINDINGS/IMPRESSION: No significant interval change is seen since the previous day's exam. POS: [facility]
[2018-04-12] MEDS: Fluticasone Propionate Nasal Spray 16 gm Bottle NASAL SCH (09:14)
[2018-04-12] MEDS: Enoxaparin Sodium 40 MG/0.4 ML SYRINGE SC SCH (09:14)
--- NOTE | 2018-04-12 09:58 | PDOC.PN ---
- Subjective Encounter Start Date: 04/12/18 Encounter Start Time: 08:10 Patient seen and examined. No new complaints. No overnight events - Objective Resuscitation Status - Order Detail: 04/04/18 23:25 Resuscitation Status Routine Resuscitation Status: FULL: Full Resuscitation MAR Reviewed: Yes Vital Signs & Weight: Vital Signs (12 hours) Temp Pulse Resp BP Pulse Ox 04/12/18 07:43 98 04/12/18 07:17 98.6 F 116 H 143/47 H 97 04/12/18 05:42 118 H 18 98 04/12/18 03:45 99.2 F 121 H 20 113/73 95 04/12/18 00:40 120 H 20 92 L 04/11/18 23:48 99.4 F 122 H 18 115/68 93 L Weight Admit Weight 3.012 oz Weight 165 lb 1.6 oz Most Recent Monitor Data Heart Rate from ECG 108 NIBP 145/85 NIBP BP-Mean 110 Respiration from ECG 27 SpO2 99 I&O: 04/11/18 04/12/18 04/13/18 06:59 06:59 06:59 Intake Total 1500 2120 Output Total 1000 160 Balance 500 1960 Result Diagrams: 04/10/18 07:21 04/10/18 07:20 Radiology Reviewed by me: Yes (chest xray reviewed) EKG Reviewed by me: Yes (sinus tachycardia) Phys Exam - Physical Examination Constitutional: NAD HEENT: PERRLA, moist MMs, sclera anicteric Neck: no JVD, supple right side reduced air entry with basal rales coarse sound+ Cardiovascular: RRR, no significant murmur, no rub tachycardia Gastrointestinal: soft, non-tender, no distention, positive bowel sounds Musculoskeletal: no edema, pulses present Neurological: non-focal, normal sensation, moves all 4 limbs Lymphatic: no nodes Psychiatric: normal affect, A&O x 3 Skin: no rash, normal turgor Dx/Plan (1) Acute respiratory failure with hypoxemia Code(s): J96.01 - ACUTE RESPIRATORY FAILURE WITH HYPOXIA Status: Acute Comment: required bipap, now off bipap (2) Right lower lobe pneumonia Code(s): J18.1 - LOBAR PNEUMONIA, UNSPECIFIED ORGANISM Status: Acute Comment : supecting from streptoccocal pneumonie (3) Parapneumonic effusion Code(s): J18.9 - PNEUMONIA, UNSPECIFIED ORGANISM; J91.8 - PLEURAL EFFUSION IN OTHER CONDITIONS CLASSIFIED ELSEWHERE Status: Acute Comment: s/p thoracentesis, s/p chest tube placement (4) Sepsis with acute organ dysfunction Code(s): A41.9 - SEPSIS, UNSPECIFIED ORGANISM; R65.20 - SEVERE SEPSIS WITHOUT SEPTIC SHOCK Status: Acute (5) Sepsis due to pneumonia Code(s): J18.9 - PNEUMONIA, UNSPECIFIED ORGANISM; A41.9 - SEPSIS, UNSPECIFIED ORGANISM Status: Acute (6) Abnormal LFTs Code(s): R94.5 - ABNORMAL RESULTS OF LIVER FUNCTION STUDIES Status: Resolved Comment: due to sepsis (7) Hypokalemia Code(s): E87.6 - HYPOKALEMIA Status: Resolved (8) Hyponatremia Code(s): E87.1 - HYPO-OSMOLALITY AND HYPONATREMIA Status: Resolved (9) Obesity (BMI 30.0-34.9) Code(s): E66.9 - OBESITY, UNSPECIFIED Status: Chronic - Plan cont current plan of care, continue antibiotics, respiratory therapy * continue clindamycin and levaquin * Chest tube as per cardiovascular surgeon * her persistent tachycardia and tachypnea and weakness, still concerning, she is not ready for discharge soon * once chest tube out, then she will need PT/OT, may be rehab * medication reviewed as below * symptomatic treatment * so far all culture negative. Review of Systems - Review of Systems Constitutional: weakness. negative: fever, chills, sweats, malaise, other Respiratory: Cough, Shortness of Breath, SOB with Excertion. negative: Dry, Hemoptysis, Pleuritic Pain, Sputum, Wheezing Cardiovascular: negative: chest pain, palpitations, orthopnea, paroxysmal nocturnal dyspnea, edema, light headedness, other Gastrointestinal: negative: Nausea, Vomiting, Abdominal Pain, Diarrhea, Constipation, Melena, Hematochezia, Other Genitourinary: negative: Dysuria, Frequency, Incontinence, Hematuria, Retention , Other Musculoskeletal: negative: Neck Pain, Shoulder Pain, Arm Pain, Back Pain, Hand Pain, Leg Pain, Foot Pain, Other Skin: negative: Rash, Lesions, Nelson, Bruising, Other - Medications/Allergies Allergies/Adverse Reactions: Allergies Allergy/AdvReac Type Severity Reaction Status Date / Time Sulfa (Sulfonamide Allergy Verified 04/05/18 13:05 Antibiotics) Medications: Current Medications Acetaminophen (Tylenol) 650 mg PO Q4H PRN PRN Reason: Headache/Fever/Mild Pain (1-3) Last Admin: 04/11/18 10:15 Dose: 650 mg Hydrocodone Bitart/Acetaminophen ([place] 5/325) 1 tab PO Q4H PRN PRN Reason: Moderate Pain (4-6) Last Admin: 04/11/18 21:14 Dose: 1 tab Albuterol/Ipratropium (Duoneb) 3 ml NEB [id number] [facility] Last Admin: 04/12/18 05:42 Dose: 3 ml Bisacodyl (Dulcolax) 10 mg PO DAILYPRN PRN PRN Reason: Constipation Calcium Carbonate (Tums) 1,000 mg PO Q4H PRN PRN Reason: Heartburn or Indigestion Enoxaparin Sodium (Lovenox) 40 mg SC 0900 [facility] Last Admin: 04/12/18 09:14 Dose: 40 mg Fentanyl (Sublimaze) 25 mcg SLOW IVP Q2H PRN PRN Reason: Pain Fluticasone Propionate (Flonase Nasal [place]) 0 gm NASAL DAILY [facility] Last Admin: 04/12/18 09:14 Dose: 1 spr Clindamycin Phosphate/Dextrose (600 mg/ Device) 50 mls @ 100 mls/hr IVPB Q8HR [facility] Last Admin: 04/12/18 05:27 Dose: 50 mls Levofloxacin 750 mg/ Device 150 mls @ 100 mls/hr IVPB Q24HR [facility] Last Admin: 04/12/18 09:14 Dose: 150 mls Loperamide HCl (Imodium) 2 mg PO PRN PRN PRN Reason: Diarrhea/Loose Stools Ondansetron HCl (Zofran Odt) 4 mg PO Q6H PRN PRN Reason: Nausea/Vomiting Ondansetron HCl (Zofran) 4 mg IVP Q6H PRN PRN Reason: Nausea/Vomiting Last Admin: 04/10/18 16:59 Dose: 4 mg Phenol (Chloraseptic [place] 180 Ml Bot) 0 ml PO PRN PRN PRN Reason: SORE THROAT Last Admin: 04/06/18 00:47 Dose: 2 spr Senna/Docusate Sodium (Senokot S) 2 tab PO BIDPRN PRN PRN Reason: Constipation Sodium Chloride (Flush - Normal Saline) 10 ml IVF Q12HR PRN PRN Reason: Saline Flush Last Admin: 04/09/18 06:30 Dose: 10 ml Sodium Chloride (Flush - Normal Saline) 10 ml IVF PRN PRN PRN Reason: Saline Flush Throat Lozenges (Cepastat Lozenges) 1 jef PO PRN PRN PRN Reason: SORE THROAT Last Admin: 04/11/18 16:21 Dose: 1 jef Zolpidem Tartrate (Ambien) 5 mg PO HSPRN PRN PRN Reason: Insomnia Last Admin: 04/11/18 21:14 Dose: 5 mg
[2018-04-12] MEDS: HYDROcodone/Acetaminophen 5/325 mg Tablet PO PRN ×2 (14:47→21:34)
--- NOTE | 2018-04-12 16:18 | PRG ---
DATE OF SERVICE: 04/12/2018 SUBJECTIVE: Ms. Rosas has no complaint. Chest tube drained 160 mL previous 24 hours, 500 mL previous day, so the drainage is trending down. OBJECTIVE: GENERAL: She is in no distress. VITAL SIGNS: She is afebrile. Heart rate is 120, respiratory rate is 20, oximetry is 96% on 2 L, and blood pressure 119/79. LUNGS: Remarkable for equal breath sounds. HEART: Regular rhythm. ABDOMEN: Soft. LABORATORY DATA: White count has not been repeated since the . IMPRESSION: Pneumonia with a sterile parapneumonic effusion, status post decortication on the right. PLAN: Continue supportive care. Chest tube suction as long as there is drainage. Encouraged her to increase her activity level. I met with her and answered all of his questions. Job ID: [id number]
[2018-04-13] MEDS: HYDROcodone/Acetaminophen 5/325 mg Tablet PO PRN ×2 (03:04→12:50)
[2018-04-13] MEDS: Clindamycin/D5W 600 MG in Premix Bag 1 BAG IVPB SCH ×2 (05:35→13:57)
[2018-04-13 06:58] LABS: #Basophils 0.1 thou/uL (0.0-0.2); #Eosinphils 0.1 thou/uL (0.0-0.7); #Lymphocytes 5.1 thou/uL (1.20-3.40); #Monocytes 1.1 thou/uL (0.11-0.59); #Neutrophils 12.1 thou/uL (1.40-6.50); %Basophils 0.4 % (0.0-1.0); %Eosinophils 0.7 % (0.0-10.0); %Lymphocytes 27.5 % (21.0-51.0); %Monocytes 5.9 % (0.0-10.0); %Neutrophils 65.5 % (42.0-75.0); Hemoglobin 9.6 g/dL (12.0-16.0); Mean Corpuscular HGB CONC 33.2 g/dL (32.0-36.0); Mean Corpuscular Volume 93.5 fL (78.0-98.0); Mean Platelet Volume 6.4 fL (7.4-10.4); Platelet Count 492 thou/uL (130-400); RBC Distribution Width 12.2 % (11.5-14.5); White Blood Cell (WBC) Count 18.4 thou/uL (4.8-10.8)
[2018-04-13 07:28] LABS: ALT (SGPT) 10 U/L (8-55); AST (SGOT) 14 U/L (5-34); Albumin 2.4 g/dL (3.5-5.0); Alkaline Phosphatase 78 U/L (40-150); Anion Gap 10 mmol/L (10-20); BUN (Urea Nitrogen) 8 mg/dL (7.0-18.7); Bilirubin, Total 0.6 mg/dL (0.2-1.2); Calc. Creatinine Clearance 180 mL/min (70-130); Calcium 8.2 mg/dL (7.8-10.44); Carbon Dioxide 27 mmol/L (22-29); Chloride 99 mmol/L (98-107); Estimated GFR-MDRD Greater than 90; Globulin 3.2 g/dL (2.4-3.5); Glucose 157 mg/dL (70-105); Potassium 3.3 mmol/L (3.5-5.1); Protein, Total 5.6 g/dL (6.0-8.3); Sodium 133 mmol/L (136-145)
[2018-04-13] MEDS ORDERED: Potassium Chloride 20 MEQ TAB PO SCH (07:45)
[2018-04-13] MEDS: Fluticasone Propionate Nasal Spray 16 gm Bottle NASAL SCH (08:19)
[2018-04-13] MEDS: Enoxaparin Sodium 40 MG/0.4 ML SYRINGE SC SCH (08:20)
--- NOTE | 2018-04-13 08:22 | RAD ---
EXAM: CHEST ONE VIEW: History: 37-year-old female with history of status post decortication. Comparison: 04-12-18 FINDINGS: Two right chest tubes in place with persistent pleural and parenchymal opacity changes and some volum e loss on the right. Minimal scattered linear changes in the left base, stable. IMPRESSION: Stable chest. Short term follow up. POS: [facility]
--- NOTE | 2018-04-13 10:10 | PDOC.PN ---
- Subjective Encounter Start Date: 04/13/18 Encounter Start Time: 08:50 Patient seen and examined. No new complaints. No overnight events - Objective Resuscitation Status - Order Detail: 04/04/18 23:25 Resuscitation Status Routine Resuscitation Status: FULL: Full Resuscitation MAR Reviewed: Yes Vital Signs & Weight: Vital Signs (12 hours) Temp Pulse Resp BP Pulse Ox 04/13/18 07:35 98.2 F 107 H 18 134/82 95 04/13/18 07:00 110 H 22 H 94 L 04/13/18 04:37 97 04/13/18 04:34 98.4 F 111 H 22 H 116/78 95 04/12/18 23:52 98 F 120 H 19 126/68 95 04/12/18 23:15 120 H 20 94 L Weight Admit Weight 3.012 oz Weight 165 lb 1.6 oz Most Recent Monitor Data Heart Rate from ECG 108 NIBP 145/85 NIBP BP-Mean 110 Respiration from ECG 27 SpO2 99 I&O: 04/12/18 04/13/18 04/14/18 06:59 06:59 06:59 Intake Total 2120 1470 Output Total 160 30 Balance 1960 1440 Result Diagrams: 04/13/18 06:30 04/13/18 06:30 Radiology Reviewed by me: Yes (chest xray reviewed) Phys Exam - Physical Examination Constitutional: NAD HEENT: PERRLA, moist MMs, sclera anicteric Neck: no JVD, supple Respiratory: no wheezing, no rhonchi coarse sound, right side reduced air entry, chest tube in place Cardiovascular: RRR, no significant murmur, no rub Gastrointestinal: soft, non-tender, no distention, positive bowel sounds Musculoskeletal: no edema, pulses present Neurological: non-focal, normal sensation, moves all 4 limbs Lymphatic: no nodes Psychiatric: normal affect, A&O x 3 Skin: no rash, normal turgor Dx/Plan (1) Acute respiratory failure with hypoxemia Code(s): J96.01 - ACUTE RESPIRATORY FAILURE WITH HYPOXIA Status: Acute Comment: required bipap, now off bipap (2) Right lower lobe pneumonia Code(s): J18.1 - LOBAR PNEUMONIA, UNSPECIFIED ORGANISM Status: Acute Comment : supecting from streptoccocal pneumonie (3) Parapneumonic effusion Code(s): J18.9 - PNEUMONIA, UNSPECIFIED ORGANISM; J91.8 - PLEURAL EFFUSION IN OTHER CONDITIONS CLASSIFIED ELSEWHERE Status: Acute Comment: s/p thoracentesis, s/p chest tube placement (4) Sepsis with acute organ dysfunction Code(s): A41.9 - SEPSIS, UNSPECIFIED ORGANISM; R65.20 - SEVERE SEPSIS WITHOUT SEPTIC SHOCK Status: Acute (5) Sepsis due to pneumonia Code(s): J18.9 - PNEUMONIA, UNSPECIFIED ORGANISM; A41.9 - SEPSIS, UNSPECIFIED ORGANISM Status: Acute (6) Abnormal LFTs Code(s): R94.5 - ABNORMAL RESULTS OF LIVER FUNCTION STUDIES Status: Resolved Comment: due to sepsis (7) Hypokalemia Code(s): E87.6 - HYPOKALEMIA Status: Resolved (8) Hyponatremia Code(s): E87.1 - HYPO-OSMOLALITY AND HYPONATREMIA Status: Resolved (9) Obesity (BMI 30.0-34.9) Code(s): E66.9 - OBESITY, UNSPECIFIED Status: Chronic - Plan cont current plan of care, plan discussed w/ family, continue antibiotics, respiratory therapy * medication reviewed as below * symptomatic treatment * continue clindamycin and levaquin * chest tube as per surgeon * will need rehab on discharge * discussed with father bedside. Review of Systems - Review of Systems Constitutional: weakness. negative: fever, chills, sweats, malaise, other ENT: negative: Ear Pain, Ear Discharge, Nose Pain, Nose Discharge, Nose Congestion, Mouth Pain, Mouth Swelling, Throat Pain, Throat Swelling, Other Respiratory: Cough, Shortness of Breath, SOB with Excertion. negative: Dry, Hemoptysis, Pleuritic Pain, Sputum, Wheezing Cardiovascular: negative: chest pain, palpitations, orthopnea, paroxysmal nocturnal dyspnea, edema, light headedness, other Gastrointestinal: negative: Nausea, Vomiting, Abdominal Pain, Diarrhea, Constipation, Melena, Hematochezia, Other Genitourinary: negative: Dysuria, Frequency, Incontinence, Hematuria, Retention , Other Musculoskeletal: negative: Neck Pain, Shoulder Pain, Arm Pain, Back Pain, Hand Pain, Leg Pain, Foot Pain, Other Skin: negative: Rash, Lesions, Nelson, Bruising, Other - Medications/Allergies Allergies/Adverse Reactions: Allergies Allergy/AdvReac Type Severity Reaction Status Date / Time Sulfa (Sulfonamide Allergy Verified 04/05/18 13:05 Antibiotics) Medications: Current Medications Acetaminophen (Tylenol) 650 mg PO Q4H PRN PRN Reason: Headache/Fever/Mild Pain (1-3) Last Admin: 04/11/18 10:15 Dose: 650 mg Hydrocodone Bitart/Acetaminophen ([place] 5/325) 1 tab PO Q4H PRN PRN Reason: Moderate Pain (4-6) Last Admin: 04/13/18 03:04 Dose: 1 tab Albuterol/Ipratropium (Duoneb) 3 ml NEB [id number] [facility] Last Admin: 04/13/18 07:00 Dose: 3 ml Bisacodyl (Dulcolax) 10 mg PO DAILYPRN PRN PRN Reason: Constipation Calcium Carbonate (Tums) 1,000 mg PO Q4H PRN PRN Reason: Heartburn or Indigestion Enoxaparin Sodium (Lovenox) 40 mg SC 0900 [facility] Last Admin: 04/13/18 08:20 Dose: 40 mg Fentanyl (Sublimaze) 25 mcg SLOW IVP Q2H PRN PRN Reason: Pain Fluticasone Propionate (Flonase Nasal [place]) 0 gm NASAL DAILY [facility] Last Admin: 04/13/18 08:19 Dose: 1 spr Clindamycin Phosphate/Dextrose (600 mg/ Device) 50 mls @ 100 mls/hr IVPB Q8HR [facility] Last Admin: 04/13/18 05:35 Dose: 50 mls Levofloxacin 750 mg/ Device 150 mls @ 100 mls/hr IVPB Q24HR [facility] Last Admin: 04/13/18 08:19 Dose: 150 mls Loperamide HCl (Imodium) 2 mg PO PRN PRN PRN Reason: Diarrhea/Loose Stools Ondansetron HCl (Zofran Odt) 4 mg PO Q6H PRN PRN Reason: Nausea/Vomiting Ondansetron HCl (Zofran) 4 mg IVP Q6H PRN PRN Reason: Nausea/Vomiting Last Admin: 04/10/18 16:59 Dose: 4 mg Phenol (Chloraseptic [place] 180 Ml Bot) 0 ml PO PRN PRN PRN Reason: SORE THROAT Last Admin: 04/06/18 00:47 Dose: 2 spr Senna/Docusate Sodium (Senokot S) 2 tab PO BIDPRN PRN PRN Reason: Constipation Sodium Chloride (Flush - Normal Saline) 10 ml IVF Q12HR PRN PRN Reason: Saline Flush Last Admin: 04/13/18 08:20 Dose: 10 ml Sodium Chloride (Flush - Normal Saline) 10 ml IVF PRN PRN PRN Reason: Saline Flush Throat Lozenges (Cepastat Lozenges) 1 jef PO PRN PRN PRN Reason: SORE THROAT Last Admin: 04/11/18 16:21 Dose: 1 jef Zolpidem Tartrate (Ambien) 5 mg PO HSPRN PRN PRN Reason: Insomnia Last Admin: 04/11/18 21:14 Dose: 5 mg
--- NOTE | 2018-04-13 17:56 | PRG ---
DATE OF SERVICE: 04/13/2018 SERVICE: Pulmonary Medicine. INTERVAL HISTORY: The patient is doing fine from a respiratory standpoint. Breathing comfortably. No complaints of fevers, chills, nausea, vomiting, or diarrhea. Otherwise, she is really excited because she is going to be moving her wedding to Wednesday. She is going to have the ceremony here in the hospital. PHYSICAL EXAMINATION: VITAL SIGNS: Afebrile. Pulse 107, blood pressure 113/76, respirations 20, saturation 97% on 2 L nasal cannula. GENERAL: The patient is awake, alert, in no apparent distress. LUNGS: Decent air entry. There is no prolonged expiratory phase or wheezing. HEART: Normal rate and regular. ABDOMEN: Soft, nontender, and nondistended. Bowel sounds are positive. MUSCULOSKELETAL: No cyanosis or clubbing. No pitting in the bilateral lower extremities. NEUROLOGIC: Grossly nonfocal. LABORATORY DATA: WBC 18.4, hemoglobin 9.6, platelets 492,000. Sodium 133. Basic metabolic profile is otherwise unremarkable. Potassium is 3.3. CRP is downtrending gently. All microbiology studies are negative to date. ASSESSMENT: 1. Acute hypoxic respiratory failure, improving. 2. Community-acquired pneumonia. 3. Complicated parapneumonic pleural effusion, status post decortication, postop day #3. DISCUSSION AND PLAN: We will replace the potassium. I will give her a laboratory holiday once again tomorrow morning. She can be converted over to p.o. Augmentin. She will need to complete a 4-week course of antibiotic. Pulmonary Critical Care will continue to follow while she remains in-house. Hopefully, the chest tubes will be removed in 24 to 48 hours. Job ID: [id number]
[2018-04-13] MEDS: Amoxicillin/Potassium Clav 875 MG TAB PO SCH (20:19)
[2018-04-13] MEDS: Zolpidem Tartrate 5 MG TAB PO PRN (20:19)
[2018-04-14] MEDS: HYDROcodone/Acetaminophen 5/325 mg Tablet PO PRN ×3 (03:36→22:37)
[2018-04-14] MEDS: Enoxaparin Sodium 40 MG/0.4 ML SYRINGE SC SCH (07:42)
[2018-04-14] MEDS: Amoxicillin/Potassium Clav 875 MG TAB PO SCH ×2 (07:43→20:07)
[2018-04-14] MEDS: Fluticasone Propionate Nasal Spray 16 gm Bottle NASAL SCH (07:43)
[2018-04-14 11:47] VITALS: BMI 29.2
--- NOTE | 2018-04-14 12:50 | PDOC.PN ---
- Subjective Encounter Start Date: 04/14/18 Encounter Start Time: 08:00 Patient seen and examined. No new complaints. No overnight events chest tube has been removed - Objective Resuscitation Status - Order Detail: 04/04/18 23:25 Resuscitation Status Routine Resuscitation Status: FULL: Full Resuscitation MAR Reviewed: Yes Vital Signs & Weight: Vital Signs (12 hours) Temp Pulse Resp BP BP Pulse Ox 04/14/18 12:33 112 H 20 92 L 04/14/18 10:58 97.8 F 115 H 18 129/85 95 04/14/18 07:58 94 L 04/14/18 07:56 107 H 20 93 L 04/14/18 07:36 98 F 108 H 22 H 145/96 H 96 04/14/18 04:00 97.6 F 114 H 18 112/70 97 Weight Admit Weight 180 lb Weight 165 lb 1.6 oz Most Recent Monitor Data Heart Rate from ECG 108 NIBP 145/85 NIBP BP-Mean 110 Respiration from ECG 27 SpO2 99 I&O: 04/13/18 04/14/18 04/15/18 06:59 06:59 06:59 Intake Total 1470 1900 Output Total 30 630 Balance 1440 1270 Result Diagrams: 04/13/18 06:30 04/13/18 06:30 Phys Exam - Physical Examination Constitutional: NAD HEENT: PERRLA, moist MMs, sclera anicteric Neck: no JVD, supple Respiratory: no wheezing, no rhonchi reduced air entry right base Cardiovascular: RRR, no significant murmur, no rub Gastrointestinal: soft, non-tender, no distention, positive bowel sounds Musculoskeletal: no edema, pulses present Neurological: non-focal, normal sensation Lymphatic: no nodes Psychiatric: normal affect Skin: no rash, normal turgor Dx/Plan (1) Acute respiratory failure with hypoxemia Code(s): J96.01 - ACUTE RESPIRATORY FAILURE WITH HYPOXIA Status: Acute Comment: required bipap, now off bipap (2) Right lower lobe pneumonia Code(s): J18.1 - LOBAR PNEUMONIA, UNSPECIFIED ORGANISM Status: Acute Comment : supecting from streptoccocal pneumonie (3) Parapneumonic effusion Code(s): J18.9 - PNEUMONIA, UNSPECIFIED ORGANISM; J91.8 - PLEURAL EFFUSION IN OTHER CONDITIONS CLASSIFIED ELSEWHERE Status: Acute Comment: s/p thoracentesis, s/p chest tube placement (4) Sepsis with acute organ dysfunction Code(s): A41.9 - SEPSIS, UNSPECIFIED ORGANISM; R65.20 - SEVERE SEPSIS WITHOUT SEPTIC SHOCK Status: Acute (5) Sepsis due to pneumonia Code(s): J18.9 - PNEUMONIA, UNSPECIFIED ORGANISM; A41.9 - SEPSIS, UNSPECIFIED ORGANISM Status: Acute (6) Abnormal LFTs Code(s): R94.5 - ABNORMAL RESULTS OF LIVER FUNCTION STUDIES Status: Resolved Comment: due to sepsis (7) Hypokalemia Code(s): E87.6 - HYPOKALEMIA Status: Resolved (8) Hyponatremia Code(s): E87.1 - HYPO-OSMOLALITY AND HYPONATREMIA Status: Resolved (9) Obesity (BMI 30.0-34.9) Code(s): E66.9 - OBESITY, UNSPECIFIED Status: Chronic - Plan cont current plan of care, continue antibiotics, PT/OT, social problems specialist, respiratory therapy * continue PT/OT today * rehab screen * continue augmentin * will repeat labs tomorrow * will monitor today * medication reviewed as below * symptomatic treatment. Review of Systems - Review of Systems Constitutional: weakness. negative: fever, chills, sweats, malaise, other Respiratory: negative: Cough, Dry, Shortness of Breath, Hemoptysis, SOB with Excertion, Pleuritic Pain, Sputum, Wheezing Cardiovascular: negative: chest pain, palpitations, orthopnea, paroxysmal nocturnal dyspnea, edema, light headedness, other Gastrointestinal: negative: Nausea, Vomiting, Abdominal Pain, Diarrhea, Constipation, Melena, Hematochezia, Other Genitourinary: negative: Dysuria, Frequency, Incontinence, Hematuria, Retention , Other Musculoskeletal: negative: Neck Pain, Shoulder Pain, Arm Pain, Back Pain, Hand Pain, Leg Pain, Foot Pain, Other Skin: negative: Rash, Lesions, Nelson, Bruising, Other - Medications/Allergies Allergies/Adverse Reactions: Allergies Allergy/AdvReac Type Severity Reaction Status Date / Time Sulfa (Sulfonamide Allergy Verified 04/05/18 13:05 Antibiotics) Medications: Current Medications Acetaminophen (Tylenol) 650 mg PO Q4H PRN PRN Reason: Headache/Fever/Mild Pain (1-3) Last Admin: 04/11/18 10:15 Dose: 650 mg Hydrocodone Bitart/Acetaminophen ([place] 5/325) 1 tab PO Q4H PRN PRN Reason: Moderate Pain (4-6) Last Admin: 04/14/18 03:36 Dose: 1 tab Albuterol/Ipratropium (Duoneb) 3 ml NEB [id number] [facility] Last Admin: 04/14/18 12:33 Dose: 3 ml Amoxicillin/Clavulanate Potassium (Augmentin) 875 mg PO Q12HR [facility] Stop: 05/11/18 21:01 Last Admin: 04/14/18 07:43 Dose: 875 mg Bisacodyl (Dulcolax) 10 mg PO DAILYPRN PRN PRN Reason: Constipation Calcium Carbonate (Tums) 1,000 mg PO Q4H PRN PRN Reason: Heartburn or Indigestion Enoxaparin Sodium (Lovenox) 40 mg SC 0900 [facility] Last Admin: 04/14/18 07:42 Dose: 40 mg Fentanyl (Sublimaze) 25 mcg SLOW IVP Q2H PRN PRN Reason: Pain Fluticasone Propionate (Flonase Nasal [place]) 0 gm NASAL DAILY [facility] Last Admin: 04/14/18 07:43 Dose: 1 spr Loperamide HCl (Imodium) 2 mg PO PRN PRN PRN Reason: Diarrhea/Loose Stools Ondansetron HCl (Zofran Odt) 4 mg PO Q6H PRN PRN Reason: Nausea/Vomiting Ondansetron HCl (Zofran) 4 mg IVP Q6H PRN PRN Reason: Nausea/Vomiting Last Admin: 04/10/18 16:59 Dose: 4 mg Phenol (Chloraseptic [place] 180 Ml Bot) 0 ml PO PRN PRN PRN Reason: SORE THROAT Last Admin: 04/06/18 00:47 Dose: 2 spr Senna/Docusate Sodium (Senokot S) 2 tab PO BIDPRN PRN PRN Reason: Constipation Sodium Chloride (Flush - Normal Saline) 10 ml IVF Q12HR PRN PRN Reason: Saline Flush Last Admin: 04/13/18 08:20 Dose: 10 ml Sodium Chloride (Flush - Normal Saline) 10 ml IVF PRN PRN PRN Reason: Saline Flush Throat Lozenges (Cepastat Lozenges) 1 jef PO PRN PRN PRN Reason: SORE THROAT Last Admin: 04/11/18 16:21 Dose: 1 jef Zolpidem Tartrate (Ambien) 5 mg PO HSPRN PRN PRN Reason: Insomnia Last Admin: 04/13/18 20:19 Dose: 5 mg
--- NOTE | 2018-04-14 21:11 | ULT ---
BILATERAL LOWER EXTREMITY VENOUS ULTRASOUND: 04/14/18 COMPARISON: None. HISTORY: Bilateral lower extremity pain and edema. TECHNIQUE: Multiplanar malloy scale and color doppler images were obtained in a bilateral lower extremity venous u ltrasound. Spectral analysis of the doppler waveforms were performed. FINDINGS: Bilateral common femoral veins, profunda femoral veins, superficial femoral veins, and popliteal vein s are normal in appearance without visible thrombus. These vessels demonstrate normal compression, fl ow, and augmentation. The posterior tibial veins and great saphenous veins are also patent. IMPRESSION: No evidence of DVT. POS: [facility]
[2018-04-15] MEDS: Zolpidem Tartrate 5 MG TAB PO PRN (00:59)
[2018-04-15] MEDS: HYDROcodone/Acetaminophen 5/325 mg Tablet PO PRN (06:44)
[2018-04-15 07:46] LABS: #Eosinphils 0.2 thou/uL (0.0-0.7); #Lymphocytes 3.7 thou/uL (1.20-3.40); #Monocytes 0.9 thou/uL (0.11-0.59); #Neutrophils 11.8 thou/uL (1.40-6.50); %Eosinophils 1.3 % (0.0-10.0); %Lymphocytes 22.1 % (21.0-51.0); %Monocytes 5.5 % (0.0-10.0); %Neutrophils 71.1 % (42.0-75.0); Hemoglobin 9.7 g/dL (12.0-16.0); Mean Corpuscular HGB CONC 34.1 g/dL (32.0-36.0); Mean Corpuscular Hemoglobin 32.1 pg (27.0-31.0); Mean Corpuscular Volume 93.9 fL (78.0-98.0); Mean Platelet Volume 6.1 fL (7.4-10.4); Platelet Count 545 thou/uL (130-400); RBC Distribution Width 12.2 % (11.5-14.5); Red Blood Cell (RBC) Count 3.01 mill/uL (4.20-5.40); White Blood Cell (WBC) Count 16.7 thou/uL (4.8-10.8)
[2018-04-15 08:06] LABS: Anion Gap 14 mmol/L (10-20); BUN (Urea Nitrogen) 6 mg/dL (7.0-18.7); Calc. Creatinine Clearance 200 mL/min (70-130); Calcium 8.6 mg/dL (7.8-10.44); Carbon Dioxide 24 mmol/L (22-29); Chloride 101 mmol/L (98-107); Estimated GFR-MDRD Greater than 90; Glucose 114 mg/dL (70-105); Potassium 4.1 mmol/L (3.5-5.1); Sodium 135 mmol/L (136-145)
[2018-04-15] MEDS: Amoxicillin/Potassium Clav 875 MG TAB PO SCH (08:06)
[2018-04-15] MEDS: Enoxaparin Sodium 40 MG/0.4 ML SYRINGE SC SCH (08:06)
[2018-04-15] MEDS: Fluticasone Propionate Nasal Spray 16 gm Bottle NASAL SCH (08:18)
--- NOTE | 2018-04-15 09:08 | PDOC.PN ---
- Subjective Encounter Start Date: 04/15/18 Encounter Start Time: 08:10 Patient seen and examined. No new complaints. No overnight events - Objective Resuscitation Status - Order Detail: 04/04/18 23:25 Resuscitation Status Routine Resuscitation Status: FULL: Full Resuscitation MAR Reviewed: Yes Vital Signs & Weight: Vital Signs (12 hours) Temp Pulse Resp BP Pulse Ox 04/15/18 07:42 98.5 F 105 H 16 136/80 93 L 04/15/18 04:34 98.5 F 106 H 20 105/72 99 04/15/18 01:12 108 H 16 97 04/15/18 00:34 98.5 F 110 H 20 115/75 92 L Weight Admit Weight 180 lb Weight 165 lb 1.6 oz Most Recent Monitor Data Heart Rate from ECG 108 NIBP 145/85 NIBP BP-Mean 110 Respiration from ECG 27 SpO2 99 I&O: 04/14/18 04/15/18 04/16/18 06:59 06:59 06:59 Intake Total 1900 1830 Output Total 630 325 Balance 1270 1505 Result Diagrams: 04/15/18 07:09 04/15/18 07:09 Phys Exam - Physical Examination Constitutional: NAD HEENT: PERRLA, moist MMs, sclera anicteric Neck: no JVD, supple Respiratory: no wheezing, no rales, no rhonchi Cardiovascular: RRR, no significant murmur, no rub reduced air entry at base Gastrointestinal: soft, non-tender, no distention, positive bowel sounds Musculoskeletal: no edema, pulses present Neurological: non-focal, normal sensation, moves all 4 limbs Lymphatic: no nodes Psychiatric: normal affect, A&O x 3 Skin: no rash, normal turgor Dx/Plan (1) Acute respiratory failure with hypoxemia Code(s): J96.01 - ACUTE RESPIRATORY FAILURE WITH HYPOXIA Status: Acute Comment: required bipap, now off bipap (2) Right lower lobe pneumonia Code(s): J18.1 - LOBAR PNEUMONIA, UNSPECIFIED ORGANISM Status: Acute Comment : supecting from streptoccocal pneumonie (3) Parapneumonic effusion Code(s): J18.9 - PNEUMONIA, UNSPECIFIED ORGANISM; J91.8 - PLEURAL EFFUSION IN OTHER CONDITIONS CLASSIFIED ELSEWHERE Status: Acute Comment: s/p thoracentesis, s/p chest tube placement (4) Sepsis with acute organ dysfunction Code(s): A41.9 - SEPSIS, UNSPECIFIED ORGANISM; R65.20 - SEVERE SEPSIS WITHOUT SEPTIC SHOCK Status: Acute (5) Sepsis due to pneumonia Code(s): J18.9 - PNEUMONIA, UNSPECIFIED ORGANISM; A41.9 - SEPSIS, UNSPECIFIED ORGANISM Status: Acute (6) Abnormal LFTs Code(s): R94.5 - ABNORMAL RESULTS OF LIVER FUNCTION STUDIES Status: Resolved Comment: due to sepsis (7) Hypokalemia Code(s): E87.6 - HYPOKALEMIA Status: Resolved (8) Hyponatremia Code(s): E87.1 - HYPO-OSMOLALITY AND HYPONATREMIA Status: Resolved (9) Obesity (BMI 30.0-34.9) Code(s): E66.9 - OBESITY, UNSPECIFIED Status: Chronic - Plan cont current plan of care, continue antibiotics, PT/OT, social services manager, respiratory therapy * medication reviewed as below * symptomatic treatment * see my discharge margyy. Review of Systems - Review of Systems ENT: negative: Ear Pain, Ear Discharge, Nose Pain, Nose Discharge, Nose Congestion, Mouth Pain, Mouth Swelling, Throat Pain, Throat Swelling, Other Respiratory: negative: Cough, Dry, Shortness of Breath, Hemoptysis, SOB with Excertion, Pleuritic Pain, Sputum, Wheezing Cardiovascular: negative: chest pain, palpitations, orthopnea, paroxysmal nocturnal dyspnea, edema, light headedness, other Gastrointestinal: negative: Nausea, Vomiting, Abdominal Pain, Diarrhea, Constipation, Melena, Hematochezia, Other Genitourinary: negative: Dysuria, Frequency, Incontinence, Hematuria, Retention , Other Musculoskeletal: negative: Neck Pain, Shoulder Pain, Arm Pain, Back Pain, Hand Pain, Leg Pain, Foot Pain, Other - Medications/Allergies Allergies/Adverse Reactions: Allergies Allergy/AdvReac Type Severity Reaction Status Date / Time Sulfa (Sulfonamide Allergy Verified 04/05/18 13:05 Antibiotics) Medications: Current Medications Acetaminophen (Tylenol) 650 mg PO Q4H PRN PRN Reason: Headache/Fever/Mild Pain (1-3) Last Admin: 04/11/18 10:15 Dose: 650 mg Albuterol/Ipratropium (Duoneb) 3 ml NEB [id number] GORDON Last Admin: 04/15/18 01:12 Dose: 3 ml Amoxicillin/Clavulanate Potassium (Augmentin) 875 mg PO Q12HR [facility] Stop: 05/11/18 21:01 Last Admin: 04/15/18 08:06 Dose: 875 mg Bisacodyl (Dulcolax) 10 mg PO DAILYPRN PRN PRN Reason: Constipation Calcium Carbonate (Tums) 1,000 mg PO Q4H PRN PRN Reason: Heartburn or Indigestion Enoxaparin Sodium (Lovenox) 40 mg SC 0900 [facility] Last Admin: 04/15/18 08:06 Dose: 40 mg Fentanyl (Sublimaze) 25 mcg SLOW IVP Q2H PRN PRN Reason: Pain Fluticasone Propionate (Flonase Nasal [place]) 0 gm NASAL DAILY [facility] Last Admin: 04/15/18 08:18 Dose: 1 spr Loperamide HCl (Imodium) 2 mg PO PRN PRN PRN Reason: Diarrhea/Loose Stools Ondansetron HCl (Zofran Odt) 4 mg PO Q6H PRN PRN Reason: Nausea/Vomiting Ondansetron HCl (Zofran) 4 mg IVP Q6H PRN PRN Reason: Nausea/Vomiting Last Admin: 04/10/18 16:59 Dose: 4 mg Phenol (Chloraseptic [place] 180 Ml Bot) 0 ml PO PRN PRN PRN Reason: SORE THROAT Last Admin: 04/06/18 00:47 Dose: 2 spr Senna/Docusate Sodium (Senokot S) 2 tab PO BIDPRN PRN PRN Reason: Constipation Sodium Chloride (Flush - Normal Saline) 10 ml IVF Q12HR PRN PRN Reason: Saline Flush Last Admin: 04/13/18 08:20 Dose: 10 ml Sodium Chloride (Flush - Normal Saline) 10 ml IVF PRN PRN PRN Reason: Saline Flush Throat Lozenges (Cepastat Lozenges) 1 jef PO PRN PRN PRN Reason: SORE THROAT Last Admin: 04/11/18 16:21 Dose: 1 jef Zolpidem Tartrate (Ambien) 5 mg PO HSPRN PRN PRN Reason: Insomnia Last Admin: 04/15/18 00:59 Dose: 5 mg
--- NOTE | 2018-04-15 10:25 | DIS ---
DATE OF ADMISSION: 04/04/2018 DATE OF DISCHARGE: 04/15/2018 PRIMARY CARE PHYSICIAN: Dr. Yousif Gurrola. DISCHARGE DISPOSITION: Inpatient rehab. PRIMARY DISCHARGE DIAGNOSES: 1. Acute respiratory failure with hypoxia. 2. Sepsis with acute organ dysfunction. 3. Community-acquired right lower lobe pneumonia. 4. Parapneumonic effusion. 5. Status post thoracentesis and decortication. 6. Abnormal LFT due to sepsis. 7. Abnormal electrolytes, corrected. SECONDARY DISCHARGE DIAGNOSES: 1. Obesity with BMI 29. 2. Intellectual disability. PRIMARY PROCEDURES/OPERATIONS: Thoracentesis was performed by Dr. Weaver. Decortication was performed by Dr. Briceno. Chest tube was placed by Dr. Briceno. RADIOLOGICAL INVESTIGATION: The patient had several chest x-rays while in the hospital. Abdominal ultrasound was unremarkable. CT abdomen and pelvis showed right lower lobe pneumonia. CT chest showed right lower lobe consolidation with pleural effusion. Ultrasound lower extremity, negative for any DVT. SIGNIFICANT LABORATORY DATA: WBC 16.7, hemoglobin 9.7, and platelets 545. Sodium 135, potassium 4.1, BUN 6, creatinine 0.45, calcium 8.6. LFT normal. CRP 32.7. Urinalysis unremarkable. Pleural fluid; LDH 2311 and WBC 4040. Hepatitis profile negative. Urine Legionella negative, urine Streptococcus negative, fungal negative. Blood culture, urine culture, respiratory virus panel, and AFB, negative. DISCHARGE MEDICATIONS: 1. Augmentin 875 mg twice daily for 20 more days. 2. Florastor 250 mg p.o. daily. 3. Ventolin nebulization q.8 hourly p.r.n. 4. Claritin 10 mg daily p.r.n. 5. Flovent inhalation b.i.d. 6. Prozac 10 mg daily. CONTRAINDICATION: None. CODE STATUS: Full code. INPATIENT CONSULTANTS: Dr. Weaver was following while in the hospital. Dr. Briceno was following while in the hospital. CASE RESULT PENDING ON DISCHARGE: None. ALLERGIES: SULFA DRUGS. DISCHARGE PLAN: Posthospital, the patient is discharged to rehab. Subsequently, the patient will follow up with Dr. Weaver as instructed as well as Dr. Yousif Gurrola in 1 week. HOSPITAL COURSE: A 37-year-old female with above-mentioned medical problem, who was admitted by me on April 05, 2018. Please see my HPI for further details. The patient was admitted, at that time, she was having pleuritic right-sided chest pain, cough, shortness of breath. She was tachycardic and tachypneic. Her routine lab test showed abnormal LFT, that is why in the emergency room, the patient had abdominal ultrasound, which was unremarkable. Abdomen and pelvis CT scan showed right lower lobe consolidation. Chest x-ray also confirmed right lower lobe consolidation. The patient's condition was not improving within 24 hours and that is why we consulted director of mechanical engineering. Initially, we started on Rocephin and Levaquin, and we also added vancomycin. Printing Technician discontinued all antibiotic therapy, and the patient was changed to p.o. Levaquin upon consultation. The patient then was transferred to ICU because of respiratory failure. She required BiPAP. The patient was also presumed for fluid overload and that is why the patient was given Lasix without any clinical improvement. The patient's condition deteriorated and did not have any improvement in her chest x-ray, that is why CT chest was done, which showed pleural effusion. Subsequently, thoracentesis confirmed parapneumonic effusion. The patient did not have any significant drainage with thoracentesis, that is why Dr. Briceno was consulted and he put a chest tube. Even with the chest tube, there was no significant drainage and that is why the patient required decortication procedure. Subsequently, the patient had a chest tube in place and we were monitoring with daily chest x-ray. Subsequently, chest tube was discontinued. The patient was persistently tachycardic during hospital course most of the time, but her condition day-by-day was slowly improving. As the patient's condition deteriorated, we changed antibiotic therapy to IV Levaquin and then added clindamycin. Upon discharge, we changed to Augmentin p.o. for another 20 days. The patient is seen and examined at bedside today. She is physically weak and she is requiring placement for rehabilitation. She is still requiring oxygen. Her leukocytosis is improving. Her inflammatory marker is improving. Her condition is overall improving, but she will need rehabilitation. We started PT, OT, and with the help of case finisher, we are arranging rehab. The patient is seen and examined at bedside today. Please see my progress note from today for further details. Paperwork for discharge done and discharge medication reconciliation done. Total time spent on discharge day, 32 minutes. Job ID: [id number]
[2018-04-15 11:48] VITALS: TEMP 98.2
[2018-04-15 12:12] VITALS: BP 124/79
== END 2018-04-15 14:16 | DRG 853 ==
LOC: ERS 20:40 → ERHOLD 23:30 → T4-A 04-05 11:42 → CCU 04-06 13:27 → IMCU/EMU 04-07 16:47 → SURG A 04-12 12:12
PROVIDERS: ADMIT Internal Medicine; ATTEND Internal Medicine
PROC: 0W9930Z Drainage of Right Pleural Cavity with Drainage Device, Percutaneous Approach (ICD-10-PCS; 2018-04-08)
PROC: 0BCK4ZZ Extirpation of Matter from Right Lung, Percutaneous Endoscopic Approach (ICD-10-PCS; principal; 2018-04-10)
PROC: 0W9900Z Drainage of Right Pleural Cavity with Drainage Device, Open Approach (ICD-10-PCS; 2018-04-10)
DX: A41.9 Sepsis, unspecified organism (principal); J15.4 Pneumonia due to other streptococci; J86.9 Pyothorax without fistula; J96.01 Acute respiratory failure with hypoxia; E87.1 Hypo-osmolality and hyponatremia; J90 Pleural effusion, not elsewhere classified; R65.20 Severe sepsis without septic shock; F41.9 Anxiety disorder, unspecified; F32.9 Major depressive disorder, single episode, unspecified; E66.01 Morbid (severe) obesity due to excess calories; Z68.29 Body mass index [BMI] 29.0-29.9, adult; E87.6 Hypokalemia; J30.9 Allergic rhinitis, unspecified; R94.5 Abnormal results of liver function studies; R00.0 Tachycardia, unspecified; Z90.49 Acquired absence of other specified parts of digestive tract
CPT/HCPCS: 36415; 71045; 71046; 71250; 74176; 76705; 80048; 80053; 80074; 81003; 81015; 82150; 82805; 82945; 83605; 83615; 83690; 83735; 83880; 83986; 84100; 84157; 84478; 84484; 85025; 85060; 86140; 86850; 86900; 86901; 87040; 87070; 87077; 87086; 87116; 87205; 87206; 87633; 87899; 88112; 88305; 89051; 93970; 94640; 94660; 96361; 96365; 96366; 96367; 96375; C9113; G8978-GP-CL; G8979-GP-CJ; G8987-GO-CK; G8988-GO-CI; J0456; J0670; J0696; J1100; J1650; J1885; J1940; J1956; J2001; J2250; J2405; J2543; J2704; J2920; J3010; J3370; J3480; J3490; J7050; J7620

== ENCOUNTER 2018-06-09 15:48 | Outpatient (CLI) | payer MEDICARE, MEDICAID ==
--- NOTE | 2018-06-09 16:13 | RAD ---
CHEST TWO VIEW 06/09/18 HISTORY: Empyema. COMPARISON: Radiograph 05/20/18. FINDINGS: Large layering right pleural effusion. This is similar. No left sided effusion. No significant pneumo thorax. Right upper quadrant surgical clips. IMPRESSION: Similar appearance to the complex right layering pleural effusion. POS: [facility]
== END 2018-06-09 15:49 | disposition home or self-care (01) ==
LOC: RAD 15:48
PROVIDERS: ATTEND Internal Medicine
DX: R06.00 Dyspnea, unspecified (principal); J90 Pleural effusion, not elsewhere classified
CPT/HCPCS: 71046

== ENCOUNTER 2018-09-27 11:27 | Outpatient (CLI) | payer MEDICARE, MEDICAID ==
--- NOTE | 2018-09-27 11:45 | RAD ---
XR Chest Pa Lat @ POB History: Shortness of breath Comparison: Radiograph May 2018 Findings: Size decrease right layering pleural effusion. Left lung is clear. Right upper quadrant jaz gical clips. Cardiac silhouette and mediastinal contours are within normal limits. Impression: Size decreased right layering pleural effusion.
== END 2018-09-27 11:28 | disposition home or self-care (01) ==
LOC: RAD 11:27
PROVIDERS: ATTEND Thoracic Surgery (Cardiothoracic Vascular Surgery)
DX: J86.9 Pyothorax without fistula (principal); J90 Pleural effusion, not elsewhere classified
CPT/HCPCS: 71046

== ENCOUNTER 2019-01-30 19:36 | Emergency (ER) | payer MEDICARE, MEDICAID ==
--- NOTE | 2019-01-30 21:22 | RAD ---
Frontal view chest COMPARISON: 09/27/2018 INDICATION: Emergency exam FINDINGS: There is stable patchy density of the right mid to lower lung zone. Mild elevation right he midiaphragm and obscuration of lateral right costophrenic sulcus, stable. Chest is otherwise similar. IMPRESSION: Stable chest, with persistence of patchy density in the mid to lower right lung zone and mild pleural-based density, inferior right chest. Transcribed Date/Time: 01/30/2019 9:45 PM
--- NOTE | 2019-01-30 21:31 | CT ---
CT Brain WO Con: 01/30/2019 12:00 AM CLINICAL HISTORY: Headache. COMPARISON: None. FINDINGS: Hemorrhage: None. Ventricular system: Normal in size and morphology for the patient's age. Cerebral parenchyma: Normal Midline shift: None. Mass: No mass effect. Calvarium: Normal. Visualized Paranasal sinuses: No fluid levels. Decreased pneumatization of mastoid air cells. IMPRESSION: No acute intracranial abnormalities.
[2019-01-30] MEDS ORDERED: Acetaminophen 500 MG TAB ONE (22:22)
[2019-01-30] MEDS ORDERED: Ondansetron PF 4 MG/2 ML Vial ONE (22:22)
[2019-01-30] MEDS ORDERED: Ketorolac Tromethamine 30 MG/ML VIAL ONE (22:22)
== END 2019-01-31 00:41 | disposition home or self-care (01) ==
LOC: ERS 19:36
DX: R51 Headache (principal); F41.9 Anxiety disorder, unspecified; Z87.442 Personal history of urinary calculi; Z87.01 Personal history of pneumonia (recurrent)
CPT/HCPCS: 70450; 71045; 96361; 96374; 96375; J1885; J2405

== ENCOUNTER 2019-10-05 12:16 | Outpatient (CLI) | payer MEDICARE, MEDICAID ==
--- NOTE | 2019-10-05 13:45 | MMO ---
Bilateral MAMMO Bilat Screen DDI+IVELISSE. CLINICAL HISTORY: Patient is 39 years old and is seen for screening. The patient has no family history of breast cancer. The patient has no personal history of cancer. VIEWS: The views performed were: bilateral craniocaudal with tomosynthesis and bilateral mediolateral oblique with tomosynthesis. This study has been interpreted with the assistance of computer-aided detection. MAMMOGRAM FINDINGS: There are scattered fibroglandular densities. Finding 1: There are stable benign appearing calcifications seen in both breasts. Finding 2: There is a focal asymmetry measuring 7 millimeters with indistinct margins seen in the CC view only seen in the anterior sub-areolar region of the left breast. IMPRESSION: FINDING 1: STABLE CALCIFICATIONS IN BOTH BREASTS ARE BENIGN. FINDING 2: FOCAL ASYMMETRY IN THE LEFT BREAST REQUIRES ADDITIONAL EVALUATION. ADDITIONAL PROJECTIONS (LEFT CRANIOCAUDAL SPOT COMPRESSION; LEFT MEDIOLATERAL OBLIQUE SPOT COMPRESSION; AND LEFT MEDIOLATERAL) ARE RECOMMENDED. AN ULTRASOUND EXAM IS RECOMMENDED IF NEEDED. THE RESULTS OF THIS EXAM WERE SENT TO THE PATIENT. ACR BI-RADS Category 0 - Incomplete: Need additional imaging evaluation. [facility] will notify the patient of the need for additional imaging services. MAMMOGRAPHY NOTE: 1. A negative mammogram report should not delay a biopsy if a dominant of clinically suspicious mass is present. 2. Approximately 10% to 15% of breast cancers are not detected by mammography. 3. Adenosis and dense breasts may obscure an underlying neoplasm. Reported by: MCKENNA ROCK MD Electonically Signed: [id number]
== END 2019-10-05 12:17 | disposition home or self-care (01) ==
LOC: BICMAMMO 12:16
PROVIDERS: ATTEND Family Medicine
DX: Z12.31 Encounter for screening mammogram for malignant neoplasm of breast (principal); R92.1 Mammographic calcification found on diagnostic imaging of breast; N64.89 Other specified disorders of breast
CPT/HCPCS: 36415; 77063; 77067; 80053; 80061; 83036; 84439; 84443; 85025

== ENCOUNTER 2019-10-23 14:24 | Outpatient (CLI) | payer MEDICARE, MEDICAID ==
--- NOTE | 2019-10-23 14:44 | MMO ---
Left Breast MAMMO Unilat Diag DDI LT+IVELISSE. CLINICAL HISTORY: Patient is 39 years old and is seen for diagnostic exam. The patient has no family history of breast cancer. The patient has no personal history of cancer. VIEWS: The views performed were: left craniocaudal with tomosynthesis; left mediolateral oblique with tomosynthesis; and left mediolateral with tomosynthesis. FILMS COMPARED: The present examination has been compared to a prior imaging study performed at [facility] on 10/05/2019. This study has been interpreted with the assistance of computer-aided detection. MAMMOGRAM FINDINGS: There are scattered fibroglandular densities. The questionable asymmetric density did not persist with the additional views. There are no suspicious masses, suspicious calcifications, or new areas of architectural distortion. IMPRESSION: THERE IS NO MAMMOGRAPHIC EVIDENCE OF MALIGNANCY. A ROUTINE FOLLOW-UP MAMMOGRAM IN 1 YEAR IS RECOMMENDED. THE RESULTS OF THIS EXAM WERE SENT TO THE PATIENT. ACR BI-RADS Category 2 - Benign finding MAMMOGRAPHY NOTE: 1. A negative mammogram report should not delay a biopsy if a dominant of clinically suspicious mass is present. 2. Approximately 10% to 15% of breast cancers are not detected by mammography. 3. Adenosis and dense breasts may obscure an underlying neoplasm. Reported by: MCKENNA ROCK MD Electonically Signed: [id number]
== END 2019-10-23 14:25 | disposition home or self-care (01) ==
LOC: BICMAMMO 14:24
PROVIDERS: ATTEND Family Medicine
DX: R92.2 Inconclusive mammogram (principal)
CPT/HCPCS: 77065; G0279; 36415; 80053; 82043; 83036

== ENCOUNTER 2021-05-02 12:12 | Outpatient (CLI) | payer MEDICARE, MEDICAID | END 2021-05-02 12:13 | disposition home or self-care (01) | LOC: BICMAMMO 12:12 | PROVIDERS: ATTEND Family Medicine | DX: Z12.31 Encounter for screening mammogram for malignant neoplasm of breast (principal) | CPT/HCPCS: 77063; 77067 ==

== ENCOUNTER 2021-09-17 07:45 | Outpatient (CLI) | payer MEDICARE, MEDICAID | END 2021-09-17 07:46 | disposition home or self-care (01) | LOC: ULT 07:45 | PROVIDERS: ATTEND Family Medicine | DX: R10.30 Lower abdominal pain, unspecified (principal); K76.0 Fatty (change of) liver, not elsewhere classified; Z90.49 Acquired absence of other specified parts of digestive tract | CPT/HCPCS: 76700; 76856; 93976 ==

== ENCOUNTER 2023-10-11 12:26 | Outpatient (CLI) | payer MEDICARE, MEDICAID | END 2023-10-11 12:27 | disposition home or self-care (01) | LOC: BICMAMMO 12:26 | PROVIDERS: ATTEND Family Medicine | DX: Z12.31 Encounter for screening mammogram for malignant neoplasm of breast (principal) | CPT/HCPCS: 77063; 77067 ==

== ENCOUNTER 2025-01-05 08:43 | Outpatient (CLI) | payer OTHER, MEDICAID ==
[2025-01-05 10:17] LABS: BHCG - Serum Negative (NEGATIVE); Pregs Control Background? CLEAR/WHITE (CLR/WHITE); Pregs Control Bar Appear? YES (CONTROL BAR)
[2025-01-05] MEDS ORDERED: Iopamidol 370 76% 100 ML VIAL ONE (15:29)
== END 2025-01-05 08:44 | disposition home or self-care (01) ==
LOC: CT 08:43
PROVIDERS: ATTEND Family Medicine
DX: R10.32 Left lower quadrant pain (principal); K57.30 Diverticulosis of large intestine without perforation or abscess without bleeding
CPT/HCPCS: 36415; 74177; 84703; Q9967